=== PATIENT | female | born 1955 | race Caucasian/White ===

== ENCOUNTER 2017-08-03 17:05 | Observation (INO) ==
--- NOTE | 2017-08-04 07:23 | Pharmacy Consult Notes ---
[facility] Pharmacy VTE Monitoring - Patient Demographics Admission date: 09/03/17 Report Date: 08/04/17 Time: 07:22 Allergies/Adverse Reactions: No Known Allergies Allergy (Verified 08/03/17 21:18) Height: 1.55 m Weight: 69.853 kg - VTE Risk Labs: VTE Related Lab Results Hgb 12.3 g/dL (12.2-16.2) 08/03/17 18:38 Hct 41.0 % (37.0-47.0) 08/03/17 18:38 Plt Count 201 K/mm3 (142-424) D 08/03/17 18:38 BUN 10 mg/dL (7-18) 08/03/17 18:38 Creatinine 0.9 mg/dL (0.55-1.02) 08/03/17 18:38 Estimated Creat Clear 69 ML/MIN (50-200) 08/03/17 18:38 Clinical Trial Participant: No - Prophylaxis VTE Prophylaxis Ordered?: Yes Types of VTE Prophylaxis: TEDS Knee High, Pharmacological (LOVENOX) Location of Applied Device: Not Applicable Pharmacologic Type: Enoxaparin
--- NOTE | 2017-08-04 20:22 | Progress Note ---
Internal Medicine - PN: Subj *Date: 08/04/17 *Time: 20:00 Interval history: pt seen and doing better Exam Vital signs and Labs for Last 24 Hours: Temp Pulse Resp BP Pulse Ox 98.0 F 89 18 113/60 92 L 08/04/17 16:00 08/04/17 18:05 08/04/17 16:00 08/04/17 16:00 08/04/17 18:05 Short CBC 08/03/17 Range/Units 18:38 WBC 15.7 H (4.8 - 10.8) K/MM3 Hgb 12.3 (12.2 - 16.2) g/dL Hct 41.0 (37.0 - 47.0) % Plt Count 201 D (142 - 424) K/mm3 BMP 08/03/17 18:38 Sodium 133 L Potassium 3.9 Chloride 99 Carbon Dioxide 29 BUN 10 Creatinine 0.9 Glucose 180 H Calcium 8.8 Liver Function 08/03/17 Range/Units 18:38 Total Bilirubin 0.3 (0.2 - 1.0) mg/dL AST 46 H (15 - 37) U/L ALT 12 (12 - 78) U/L Alkaline Phosphatase 94 (46 - 116) U/L Albumin 2.6 L (3.4 - 5.0) gm/dL I & O for Last 24 hours: Intake & Output 08/02/17 08/03/17 08/04/17 08/05/17 11:59 11:59 11:59 11:59 Intake Total 370 / 370 60 / 60 Output Total 0 / 0 0 / 0 Balance 370 / 370 60 / 60 no acute distress - *Routine HEENT Exam Head: Present: normocephalic, atraumatic Eye: Present: EOMI, PERRL ENT: Present: mucous membranes dry - *Routine Neck Exam Present: full ROM - *Routine Respiratory Exam Present: decreased breath sounds - *Routine Cardiovascular Exam Present: RRR, murmur - *Routine Extremities Exam Present: full ROM - *Routine Skin Exam Present: intact - *Routine Neurological Exam Present: oriented X3, CN II-XII intact - Routine Psychiatric Exam Present: normal affect Assessment and Plan (1) CAP (community acquired pneumonia) Current visit: Yes Status: Acute Qualifiers: Laterality: unspecified laterality Qualified Code(s): J18.9 - Pneumonia, unspecified organism Category: Medical Code(s): J18.9 - Pneumonia, unspecified organism
--- NOTE | 2017-08-05 08:55 | Progress Note ---
Internal Medicine - PN: Subj *Date: 08/05/17 *Time: 08:53 Interval history: doing better Exam Vital signs and Labs for Last 24 Hours: Temp Pulse Resp BP Pulse Ox 98.7 F 87 18 153/84 97 08/05/17 08:00 08/05/17 08:00 08/05/17 08:00 08/05/17 08:00 08/05/17 08:00 I & O for Last 24 hours: Intake & Output 08/02/17 08/03/17 08/04/17 08/05/17 11:59 11:59 11:59 11:59 Intake Total 370 / 370 720 / 720 Output Total 0 / 0 0 / 0 Balance 370 / 370 720 / 720 no acute distress - *Routine HEENT Exam Head: Present: normocephalic Eye: Present: EOMI, PERRL ENT: Present: mucous membranes moist - *Routine Neck Exam Present: full ROM - *Routine Respiratory Exam Absent: respiratory distress - *Routine Cardiovascular Exam Present: murmur - *Routine Abdominal Exam Present: soft - *Routine Extremities Exam Present: full ROM. Absent: calf tenderness - *Routine Skin Exam Present: intact - *Routine Neurological Exam Present: oriented X3, CN II-XII intact Assessment and Plan (1) CAP (community acquired pneumonia) Current visit: Yes Status: Acute Qualifiers: Laterality: unspecified laterality Qualified Code(s): J18.9 - Pneumonia, unspecified organism Category: Medical Code(s): J18.9 - Pneumonia, unspecified organism
--- NOTE | 2017-08-05 09:11 | Discharge Summary ---
General - General Admission date: 09/03/17 Discharge date: 08/05/17 HPI HPI: this wf with fever with dec po intake andwas seen in the ed and noted to have resp sx with bilat cap - Objective Vital signs: Temp Pulse Resp BP Pulse Ox 98.7 F 87 18 153/84 97 08/05/17 08:00 08/05/17 08:00 08/05/17 08:00 08/05/17 08:00 08/05/17 08:00 no acute distress - *Routine HEENT Exam Eye: Present: EOMI, PERRL ENT: Present: mucous membranes moist - *Routine Neck Exam Present: full ROM - *Routine Respiratory Exam Present: rhonchi - *Routine Cardiovascular Exam Present: murmur - *Routine Abdominal Exam Present: soft - *Routine Extremities Exam Present: full ROM. Absent: calf tenderness - *Routine Skin Exam Present: intact. Absent: rash - *Routine Neurological Exam Present: alert, oriented X3, CN II-XII intact - Routine Psychiatric Exam Present: normal affect Hospital Course Hospital Course: pt with improvement with resp treatment and ivf martell iv abx and rinku diet and act - pt has no hypoxia on d/c DS: Diagnosis - Discharge Diagnosis (1) CAP (community acquired pneumonia) Status: Acute Meds Allergies Allergy/AdvReac Type Severity Reaction Status Date / Time No Known Allergies Allergy Verified 08/03/17 21:18 Disposition Disposition: Home, Self-Care
== END 2017-08-05 12:35 | disposition home or self-care (01) ==
LOC: INTOOBSV 18:10 → 2ND 18:10
PROVIDERS: ADMIT Internal Medicine Adolescent Medicine; ATTEND Emergency Medicine

== ENCOUNTER → 2017-09-26 15:09 | Outpatient (CLI) | payer MEDICAID, SELFPAY ==
[2017-09-26 17:51] LABS: Amphetamine/Metha Screen,Urine Negative ng/mL (<1000); Barbiturates Screen,Urine Negative ng/mL (<200); Benzodiazepines Screen,Urine Negative ng/mL (200); Cannabinoid Screen,Urine Negative ng/mL (<50); Cocaine Screen,Urine Negative ng/g (<300); Methadone Screen,Urine Negative ng/mL (<300); Opiate Screen,Urine Negative ng/mL (<300); Phencyclidine Screen,Urine Negative ng/mL (<25)
== END ==
PROVIDERS: Visit Provider Emergency Medicine
DX: Z79.899 Other long term (current) drug therapy (principal)
CPT/HCPCS: 80305

== ENCOUNTER 2017-10-17 19:41 | Emergency (ER) | payer MEDICAID, SELFPAY ==
[2017-10-17 19:42] VITALS: O2SAT 96
--- NOTE | 2017-10-17 19:47 | PC.NURSE ---
Triage nurse alerted me to patient's wound. Examined. Agree that pt is not appropriate for UTC. PMHx DM. Started yesterday as just a pimple , progressed rapidly. Discussed w/ pt and pt agreeable to transfer to ER. Report called to Annie. Bed 5 available.
[2017-10-17 20:01] VITALS: BP 150/77; PULSE 83; RESP 16; TEMP 36.6; O2SAT 97; BMI 25.8
--- NOTE | 2017-10-17 20:46 | HMH.EDGENADL ---
ED Disposition Clinical Impression: Abscess of finger Qualifiers: Laterality: left Qualified Code(s): L02.512 - Cutaneous abscess of left hand Disposition: Home, Self-Care Condition on Discharge: Good Instructions: DI for Incision and Drainage of a Skin Abscess, DI for Skin Abscess Additional Instructions: Soak finger in warm soapy water 3 times a day and apply Bactroban ointment and bandage. Elevate hand. Clindamycin as prescribed. Recheck by primary care physician on Friday. Return to the emergency department if increasing pain, swelling, redness, redstreaks or fever greater than 101 degrees. Prescriptions: Clindamycin HCl [Clindamycin 300mg Cap] 300 mg PO QID #40 cap Mupirocin [Bactroban 2% Ointment 22gm tube] 1 applicatio TP TID #1 tube Referrals: Denver Ashley MD [Primary Care Provider] - - Critical Care Critical Care Time: No Attestation: On 10/17/17, the high probability of a clinically significant, sudden or life threatening deterioration of the following system(s) required my full and direct attention, intervention and personal management. The time I documented below is in addition to time spent performing reported procedures but includes the following listed in this critical care notation. Medical Decision Making - Shamar Inquiry Pt receiving controlled substance: No Vital Signs: 10/17/17 20:01 Temperature 97.8 F Temperature Source Oral Pulse Rate [Right Radial] 83 Respiratory Rate 16 Blood Pressure [Right Arm] 150/77 Blood Pressure Mean [Right Arm] 101 Blood Pressure Source [Right Arm] Automatic Cuff Blood Pressure Position [Right Arm] Sitting 02 Sat by Pulse Oximetry 97 Oxygen Delivery Method Nasal Cannula Oxygen Flow Rate (LPM) 3 Orders (Tests/Meds): ED MEDICATIONS Generic Name Dose Route Start Last Admin Trade Name Freq PRN Reason Stop Dose Admin Nitroglycerin 0.4 mg 10/17/17 21:24 Nitrostat 0.4mg Sl Tablet SL 10/18/17 21:24 Q5MINP PRN Chest Pain Discontinued Medications Generic Name Dose Route Start Last Admin Trade Name Freq PRN Reason Stop Dose Admin Bupivacaine HCl 50 mg 10/17/17 20:53 Bupivacaine 0.5% 30ml Vial SQ 10/17/17 20:54 ONCE ONE Clindamycin HCl 300 mg 10/17/17 21:06 Cleocin 150mg Capsule PO 10/17/17 21:07 ONCE ONE Protocol ORDERS Category Date Time Status Wound Culture and Gram Stain Stat Micro 10/17/17 20:54 Ordered General Adult HPI - General Chief complaint: Skin/Abscess/Foreign Body Stated complaint: poss infected sore on left pointer finger Time Seen by Provider: 10/17/17 20:46 Mode of Arrival: Ambulatory Limitations: No Limitations Description of Symptoms (Recalled from ER Triage Doc. by RN): Open area on left pointer finger that came up yesterday. - History of Present Illness HPI narrative: The patient complains of an infected area on her left index finger that began yesterday. She squeezed it today and it popped open and drained but now is getting more swollen and painful. No fever, no injury. - Related Data Home Medications Medication Instructions Recorded Confirmed furosemide 40 mg tablet 40 mg PO ONCE 08/26/17 insulin glargine (U-100) 100 40 unit SUB-Q QHS ml 08/26/17 unit/mL (3 mL) subcutaneous pen lancets 28 gauge See Dose Instructions .ROUTE 08/26/17 .MEDSUPPLY #25 each lisinopril 10 mg tablet 10 mg PO QDAY 08/26/17 metformin 850 mg tablet 850 mg PO BID 08/26/17 metoprolol succinate ER 25 mg 25 mg PO BID 08/26/17 tablet,extended release 24 hr montelukast 10 mg tablet 10 mg PO QHS 08/26/17 nitroglycerin 0.4 mg sublingual 0.4 mg SUBLINGUAL Q5M PRN 08/26/17 tablet potassium chloride ER 20 mEq 20 meq PO QDAY 08/26/17 tablet,extended release albuterol sulfate 2.5 mg/3 mL 1.25 mg INHALATION Q4-6H PRN 09/26/17 (0.083 %) solution for nebulization Previous Rx's Medication Instructions Recorded ipratropium
[2017-10-17 22:00] VITALS: BP 146/82; PULSE 77; RESP 18; TEMP 36.6; O2SAT 97
[2017-10-17 22:12] VITALS: BP 146/82; PULSE 77; RESP 20; TEMP 36.6; O2SAT 97
== END 2017-10-17 22:01 | disposition home or self-care (01) ==
LOC: UTC 19:44 → ER 19:49
PROVIDERS: Emergency Provider Emergency Medicine; Family Provider Nurse Practitioner Family; PCP Emergency Medicine
DX: L02.512 Cutaneous abscess of left hand (principal); J45.909 Unspecified asthma, uncomplicated; J44.9 Chronic obstructive pulmonary disease, unspecified; Z99.81 Dependence on supplemental oxygen; F17.210 Nicotine dependence, cigarettes, uncomplicated; E78.5 Hyperlipidemia, unspecified; I10 Essential (primary) hypertension; E11.9 Type 2 diabetes mellitus without complications; Z79.84 Long term (current) use of oral hypoglycemic drugs; K21.9 Gastro-esophageal reflux disease without esophagitis
CPT/HCPCS: 26010; 87070; 87077; 87186; 87205; 99211; 99282

== ENCOUNTER 2017-10-27 09:55 | Outpatient (CLI) | payer MEDICAID, SELFPAY ==
[2017-10-27] VITALS (9 sets, daily range): BP systolic 93–117; BP diastolic 43–60; PULSE 81–104; RESP 18–20; TEMP 36.7; O2SAT 94–96; BMI 25.8
[2017-10-27 11:10] LABS: Basophils % 0.3 % (0.1-2.0); Eosinophils # 0.2 K/mm3 (0.0-0.4); Eosinophils % 1.9 % (0.1-12.0); Hematocrit 42.8 % (37.0-47.0); Hemoglobin 13.5 g/dL (12.2-16.2); Lymphocytes # 2.4 K/mm3 (0.7-4.5); Lymphocytes % 29.2 K/mm3 (10-50); Mean Corpuscular HGB Conc 31.6 g/dL (31.8-35.4); Mean Corpuscular Hemoglobin 31.3 pg (27.0-31.2); Mean Corpuscular Volume 99.1 fl (81-99); Mean Platelet Volume 6.8 fl (7.4-10.4); Monocytes # 0.4 K/mm3 (0.1-1.0); Monocytes % 4.4 % (1.7-9.3); Neutrophils # 5.2 K/mm3 (1.8-7.8); Neutrophils % 64.2 % (37.0-80.0); Platelet Count 514 K/mm3 (142-424); Red Blood Count 4.32 M/mm3 (4.20-5.40); Red Cell Distribution Width 15.7 % (11.5-17.5); White Blood Count 8.1 K/mm3 (4.8-10.8)
[2017-10-27 11:16] LABS: Anion Gap 12.1 mEq/L (5-15); Blood Urea Nitrogen 7 mg/dL (7-18); Carbon Dioxide 26 mmol/L (21.0-32.0); Chloride 95 mmol/L (98-107); Creatinine Clearance Estimated 68 mL/min (0-300); Creatinine,Serum 0.67 mg/dL (0.55-1.02); Estimated Glomerular Filt Rate 89 ml/min (>60); GFR (African American) 108 ML/MIN (>60); Glucose 110 mg/dL (74-106); Potassium 5.1 mmoL/L (3.5-5.1); Sodium 128 mmol/L (136-145)
== END 2017-10-27 13:20 | disposition home or self-care (01) ==
LOC: INF 12:39
PROVIDERS: Family Provider Nurse Practitioner Family; PCP Emergency Medicine; Visit Provider Emergency Medicine
DX: L02.512 Cutaneous abscess of left hand (principal)
CPT/HCPCS: 80048; 85025; 96365; 96366; J3370

== ENCOUNTER → 2017-10-28 08:20 | Outpatient (CLI) | payer MEDICAID, SELFPAY ==
[2017-10-28 09:16] VITALS: BP 123/67; PULSE 82; RESP 18; TEMP 36.5; O2SAT 94
[2017-10-28 09:31] VITALS: BP 125/67; PULSE 82; RESP 18; O2SAT 95
[2017-10-28 09:46] VITALS: BP 125/68; PULSE 83; RESP 18; O2SAT 95
--- NOTE | 2017-10-28 09:50 | P.CONPHA_ITS ---
- Pharmacy Consult Date: 10/28/17 Time: 09:47 Referring provider: DR. GALLAGHER Reason for Consult:: VANCOMYCIN DOSING Allergies and ADEs:: Allergies Allergy/AdvReac Type Severity Reaction Status Date / Time No Known Allergies Allergy Verified 10/27/17 08:31 Home Medications:: Home Medications Medication Instructions Recorded Confirmed Type furosemide 40 mg tablet 40 mg PO DAILY 08/26/17 10/28/17 History insulin glargine (U-100) 100 40 unit SUB-Q QHS ml 08/26/17 10/28/17 History unit/mL (3 mL) subcutaneous pen lisinopril 10 mg tablet 10 mg PO QDAY 08/26/17 10/28/17 History metformin 850 mg tablet 850 mg PO BID 08/26/17 10/28/17 History metoprolol succinate ER 25 mg 25 mg PO BID 08/26/17 10/28/17 History tablet,extended release 24 hr montelukast 10 mg tablet 10 mg PO QHS 08/26/17 10/28/17 History nitroglycerin 0.4 mg sublingual 0.4 mg SUBLINGUAL Q5M PRN 08/26/17 10/28/17 History tablet albuterol sulfate 2.5 mg/3 mL 1.25 mg INHALATION Q4-6H PRN 09/26/17 10/28/17 History (0.083 %) solution for nebulization Albuterol Sulfate [Albuterol HFA 2 puff INHALATION Q6H 10/27/17 10/28/17 History Inhaler] Atorvastatin Calcium [Lipitor 20mg 20 mg PO QDAY 10/27/17 10/28/17 History Tablet] Budesonide/Formoterol Fumarate 2 inh INHALATION BID 10/27/17 10/28/17 History [Symbicort 160-4.5 Mcg Inhaler] Clindamycin HCl [Clindamycin 300mg 300 mg PO QID 10/27/17 10/28/17 History Cap] Clopidogrel Bisulfate [Plavix 75mg 75 mg PO DAILY 10/27/17 10/28/17 History Tab] Estrogens, Conjugated [Premarin 0.625 mg PO QDAY 10/27/17 10/28/17 History 0.625mg tablet] Gabapentin [Neurontin 800mg Tab] 800 mg PO QID 10/27/17 10/28/17 History Ipratropium/Albuterol Sulfate 1 puff INHALATION QID 10/27/17 10/28/17 History [Combivent Respimat Inh] Isosorbide Mononitrate [Imdur 30mg 30 mg PO QAM 10/27/17 10/28/17 History ER tablet] Mupirocin [Bactroban 2% Ointment 1 applicatio TP TID 10/27/17 10/28/17 History 22gm tube] Omeprazole [Omeprazole 20mg 20 mg PO DAILY 10/27/17 10/28/17 History Capsule] Potassium Chloride [K-Tab ER 20 20 meq PO BID 10/27/17 10/28/17 History mEq] Sitagliptin Phosphate [Januvia] 100 mg PO QDAY 10/27/17 10/28/17 History Sulfamethoxazole/Trimethoprim 1 tab PO BID 10/27/17 10/28/17 History [Sulfamethoxazole-Tmp Ds Tablet] clonazePAM [Klonopin] 0.5 mg PO BID 10/27/17 10/28/17 History Height: 1.98 m Weight: 72.7 kg Laboratory Results:: CR=0.68 Medical History: Reports:: Asthma, Chronic Obstructive Pulmonary Disease (COPD) , Diabetes Mellitus Type 2, Gastroesophageal Reflux Disease(GERD), Home Oxygen, Hyperlipidemia, Hypertension, Kidney Stones, MRSA Assessment and Plan - Assessment and plan all Dx Assessment and Plan for all problems:: BASED ON PATIENT FACTORS, RECOMMEND VANCOMYCIN 1500 MG IV ONCE, THEN VANCOMYCIN 1000 MG IV Q12H FOR 4 MORE DAYS. VANCOMYCIN TROUGH LEVEL ON 10/30/17. PHARMACY WILL FOLLOW AND ADJUST APPROPRIATE.
[2017-10-28 10:01] VITALS: BP 121/62; PULSE 81; RESP 18; O2SAT 94
[2017-10-28 10:16] VITALS: BP 123/60; PULSE 80; RESP 18; O2SAT 95
[2017-10-28 10:36] VITALS: BP 119/64; PULSE 79; RESP 18; O2SAT 95
--- NOTE | 2017-10-29 08:14 | PC.NURSE ---
PT IN FOR IV VANCOMYCIN INFUSION ON 10/28/17 PM . VITAL SIGNS B.P. 136/63 P 100 R 22 O2 SAT ON ROOM AIR 98. PT DID LATER PUT ON HER OWN 02 PER NASAL CANNULA . DRESSING TO DIGIT OF L HAND INTACT. SALINE LOCK PATENT WITH NO SIGNS OF INFECTION AT THE SITE. IV ANTIBIOTIC INFUSED WITHOUT DIFFICULTY.PATIENT TOLERATED INFUSION WELL WITHOUT ANY SIGNS OF DISTRESS OR DISCOMFORT.PT LEFT WITH AFTER INFUSION.
== END ==
PROVIDERS: Family Provider Nurse Practitioner Family; PCP Emergency Medicine; Visit Provider Emergency Medicine
DX: L02.512 Cutaneous abscess of left hand (principal)
CPT/HCPCS: 96365; J3370

== ENCOUNTER → 2017-10-28 13:03 | Outpatient (POV) | payer MEDICAID, SELFPAY ==
[2017-10-28 20:47] VITALS: BMI 25.9
== END ==
PROVIDERS: Family Provider Nurse Practitioner Family; PCP Emergency Medicine; Visit Provider Internal Medicine
DX: Z00.00 Encounter for general adult medical examination without abnormal findings (principal)

== ENCOUNTER → 2017-10-29 08:10 | Outpatient (CLI) | payer MEDICAID, SELFPAY ==
[2017-10-29 08:40] VITALS: BP 103/71; PULSE 105; RESP 22
[2017-10-29 09:10] VITALS: BP 133/80; PULSE 100; RESP 20
[2017-10-29 09:40] VITALS: BP 111/66; PULSE 91; RESP 20
[2017-10-29 10:00] VITALS: BP 110/68; PULSE 83; RESP 18
[2017-10-29 20:10] VITALS: BP 109/64; PULSE 111; RESP 18; TEMP 36.3; O2SAT 96
[2017-10-29 21:15] VITALS: BP 92/58; PULSE 108; RESP 18; TEMP 36.6; O2SAT 98
== END ==
PROVIDERS: Family Provider Nurse Practitioner Family; PCP Emergency Medicine; Visit Provider Emergency Medicine
DX: L02.512 Cutaneous abscess of left hand (principal)
CPT/HCPCS: 96365; J3370

== ENCOUNTER → 2017-10-30 08:27 | Outpatient (CLI) | payer MEDICAID, SELFPAY ==
[2017-10-30] VITALS (9 sets, daily range): BP systolic 101–118; BP diastolic 60–71; PULSE 81–114; RESP 18–20; TEMP 36.6–36.9; O2SAT 20–98; BMI 25.8
[2017-10-30 09:00] LABS: Vancomycin,Trough 10.1 mcg/ml (10.0-20.0)
--- NOTE | 2017-10-30 11:00 | P.CONPHA_ITS ---
- Pharmacy Consult Date: 10/30/17 Time: 10:58 Referring provider: DR. GALLAGHER Reason for Consult:: VANCOMYCIN TROUGH LEVEL Allergies and ADEs:: Allergies Allergy/AdvReac Type Severity Reaction Status Date / Time No Known Allergies Allergy Verified 10/29/17 09:03 Home Medications:: Home Medications Medication Instructions Recorded Confirmed Type furosemide 40 mg tablet 40 mg PO DAILY 08/26/17 10/30/17 History insulin glargine (U-100) 100 40 unit SUB-Q DAILY ml 08/26/17 10/30/17 History unit/mL (3 mL) subcutaneous pen lisinopril 10 mg tablet 10 mg PO QDAY 08/26/17 10/30/17 History metformin 850 mg tablet 850 mg PO BID 08/26/17 10/30/17 History metoprolol succinate ER 25 mg 25 mg PO BID 08/26/17 10/30/17 History tablet,extended release 24 hr montelukast 10 mg tablet 10 mg PO QHS 08/26/17 10/30/17 History nitroglycerin 0.4 mg sublingual 0.4 mg SUBLINGUAL Q5M PRN 08/26/17 10/30/17 History tablet albuterol sulfate 2.5 mg/3 mL 1.25 mg INHALATION Q4-6H PRN 09/26/17 10/30/17 History (0.083 %) solution for nebulization Albuterol Sulfate [Albuterol HFA 2 puff INHALATION Q6H 10/27/17 10/30/17 History Inhaler] Atorvastatin Calcium [Lipitor 20mg 20 mg PO QDAY 10/27/17 10/30/17 History Tablet] Budesonide/Formoterol Fumarate 2 inh INHALATION BID 10/27/17 10/30/17 History [Symbicort 160-4.5 Mcg Inhaler] Clindamycin HCl [Clindamycin 300mg 300 mg PO QID 10/27/17 10/30/17 History Cap] Clopidogrel Bisulfate [Plavix 75mg 75 mg PO DAILY 10/27/17 10/30/17 History Tab] Estrogens, Conjugated [Premarin 0.625 mg PO QDAY 10/27/17 10/30/17 History 0.625mg tablet] Gabapentin [Neurontin 800mg Tab] 800 mg PO QID 10/27/17 10/30/17 History Ipratropium/Albuterol Sulfate 1 puff INHALATION QID 10/27/17 10/30/17 History [Combivent Respimat Inh] Isosorbide Mononitrate [Imdur 30mg 30 mg PO QAM 10/27/17 10/30/17 History ER tablet] Mupirocin [Bactroban 2% Ointment 1 applicatio TP TID 10/27/17 10/30/17 History 22gm tube] Omeprazole [Omeprazole 20mg 20 mg PO DAILY 10/27/17 10/30/17 History Capsule] Potassium Chloride [K-Tab ER 20 20 meq PO BID 10/27/17 10/30/17 History mEq] Sitagliptin Phosphate [Januvia] 100 mg PO QDAY 10/27/17 10/30/17 History Sulfamethoxazole/Trimethoprim 1 tab PO BID 10/27/17 10/30/17 History [Sulfamethoxazole-Tmp Ds Tablet] clonazePAM [Klonopin] 0.5 mg PO BID 10/27/17 10/30/17 History Height: 1.68 m Weight: 72.575 kg Laboratory Results:: Laboratory Results - last 24 hr 10/30/17 08:40: Vancomycin Trough 10.1 Medical History: Reports:: Asthma, Chronic Obstructive Pulmonary Disease (COPD) , Diabetes Mellitus Type 2, Gastroesophageal Reflux Disease(GERD), Home Oxygen, Hyperlipidemia, Hypertension, Kidney Stones, MRSA Assessment and Plan - Assessment and plan all Dx Assessment and Plan for all problems:: BASED ON VANCOMYCIN TROUGH LEVEL AND PATIENT FACTORS, RECOMMEND CONTINUING VANCOMYCIN 1 GM IV Q12H. PHARMACY WILL CONTINUE TO MONITOR.
== END ==
PROVIDERS: Family Provider Nurse Practitioner Family; PCP Emergency Medicine; Visit Provider Emergency Medicine
DX: L02.512 Cutaneous abscess of left hand (principal)
CPT/HCPCS: 80202; 96365; J3370

== ENCOUNTER → 2017-10-31 08:20 | Outpatient (CLI) | payer MEDICAID, SELFPAY ==
[2017-10-31 09:10] VITALS: BP 111/62; PULSE 93; RESP 24
[2017-10-31 09:40] VITALS: BP 97/55; PULSE 92; RESP 20
[2017-10-31 10:00] VITALS: BP 97/55; PULSE 92; RESP 20
--- NOTE | 2017-10-31 20:46 | PC.NURSE ---
PT CAME IN SOA AND WHEEZING .DID HAVE HER O2 ON PER NC AT 3LPM. STATES GETS THIS WAY ALL THE TIME. THIS DYSPNEA DID RESOLVE WITH REST.PT DOES REMAIN ON NC AT 3LPM. PT STATES THAT SECOND DIGIT OF L HAND IS MUCH BETTER.DID TAKE DRESSING OFF.THIS DIGIT IS STILL REDDENED WITH VARIOUS AREAS OF REDNESS. THIS DIGIT REDRESSED.PT REPEATED THAT THIS DIGIT IS MUCH BETTER THAN BEFORE. PT DENIES ANY DISCOMFORT AT THIS TIME VITAL SIGNS T 98.1 P 109 R 24 BP148/77 SAT 96 %
--- NOTE | 2017-10-31 21:40 | PC.NURSE ---
tolerated infusion without difficulty. bp130/84 p106 r 24 o2 sat 98 on nc 3lpm
== END ==
PROVIDERS: Family Provider Nurse Practitioner Family; PCP Emergency Medicine; Visit Provider Emergency Medicine
DX: L02.512 Cutaneous abscess of left hand (principal)
CPT/HCPCS: 96365; G0463; J3370

== ENCOUNTER → 2017-12-22 12:47 | Outpatient (CLI) | payer MEDICAID, SELFPAY ==
[2017-12-22 14:01] VITALS: PULSE 100; PULSE 105
[2017-12-22 14:30] VITALS: BP 142/82; PULSE 93; RESP 18; O2SAT 88
--- NOTE | 2017-12-22 14:59 | CT_ITS ---
CT chest wo con HISTORY: ITS.REASON: SOB,PULMONARY FIBROSIS, RESPIRATORY FAILURE, INTERSTITIAL RAJNI ORDERING PHYSICIAN: Fior August PATIENT AGE: 62 years Technique: Axial images obtained. High-resolution images also performed. Sagittal and coronal reformatted images are also generated and reviewed. All CT scans at the facility use one or more dose reduction, viz: automated exposure control; ma/kV adjustment per patient size (including targeted exams where dose is matched to indication; i.e. head); or iterative reconstruction technique. CONTRAST: None COMPARISON: 12/26/2016 FINDINGS: Scattered small nodes are present in the mediastinum with a emerald area in the pretracheal region extending cephalad to caudad for length of 3.9 cm and 1.2 cm AP slightly less bulky in AP dimension compared to the previous exam. No new areas of adenopathy. No hilar mass or hilar adenopathy. Coronary artery calcifications and/or stent noted. Normal heart size. There is some minimal pericardial thickening anteriorly. Small hiatal hernia. Centrilobular emphysema with pulmonary fibrosis once again noted with perihilar bronchial thickening. Mild bronchiectasis in the lung bases not significantly changed. Overall, the interlobular septal thickening has slightly improved in the lung bases. No new areas of consolidation. No pleural effusion. No new suspicious nodules. There has been interval development of wedge compression changes involving the T12 vertebral body with loss of height anteriorly of 30% and mild retropulsion of the posterior superior aspect of the T12 vertebral body x 4 mm. This was present on previous lateral chest radiograph of 05/29/2017. IMPRESSION: 1. Centrilobular emphysema with pulmonary fibrosis. There appears to be some slight improvement in the interlobular septal thickening. Persistent bronchiectasis. 2. Wedge compression changes of T12 with 4 mm retropulsion of the posterior superior aspect of the vertebral body 3. No change mild mediastinal adenopathy
[2017-12-22 15:00] VITALS: BP 120/71; PULSE 121; RESP 40; O2SAT 82
== END ==
PROVIDERS: Family Provider Nurse Practitioner Family; PCP Emergency Medicine; Visit Provider Nurse Practitioner Family
DX: R06.02 Shortness of breath (principal); J44.9 Chronic obstructive pulmonary disease, unspecified; J84.10 Pulmonary fibrosis, unspecified; J96.90 Respiratory failure, unspecified, unspecified whether with hypoxia or hypercapnia; J84.9 Interstitial pulmonary disease, unspecified
CPT/HCPCS: 71250; 94060; 94618; 94640; 94726; 94729

== ENCOUNTER → 2018-01-02 09:42 | Outpatient (CLI) | payer MEDICAID, SELFPAY ==
[2018-01-02 14:02] LABS: Amphetamine/Metha Screen,Urine Negative ng/mL (<1000); Barbiturates Screen,Urine Negative ng/mL (<200); Benzodiazepines Screen,Urine Negative ng/mL (200); Cannabinoid Screen,Urine Negative ng/mL (<50); Cocaine Screen,Urine Negative ng/g (<300); Methadone Screen,Urine Negative ng/mL (<300); Opiate Screen,Urine Negative ng/mL (<300); Phencyclidine Screen,Urine Negative ng/mL (<25)
== END ==
PROVIDERS: Visit Provider Emergency Medicine
DX: Z79.899 Other long term (current) drug therapy (principal)
CPT/HCPCS: 80305

== ENCOUNTER → 2018-02-24 13:21 | Outpatient (POV) | payer MEDICAID, SELFPAY | PROVIDERS: Family Provider Nurse Practitioner Family; PCP Emergency Medicine; Visit Provider Internal Medicine | DX: Z00.00 Encounter for general adult medical examination without abnormal findings (principal) ==

== ENCOUNTER 2018-03-16 16:13 | Observation (INO) ==
--- NOTE | 2018-03-16 16:35 | Emergency Department Note ---
ED Disposition Clinical Impression: Pneumonia Qualifiers: Pneumonia type: due to unspecified organism Laterality: unspecified laterality Lung location: unspecified part of lung Qualified Code(s): J18.9 - Pneumonia, unspecified organism Disposition: Admitted As Inpatient Condition on Discharge: Good Time of Disposition: 16:45 - Critical Care Critical Care Time: No Attestation: On 03/16/18, the high probability of a clinically significant, sudden or life threatening deterioration of the following system(s) required my full and direct attention, intervention and personal management. The time I documented below is in addition to time spent performing reported procedures but includes the following listed in this critical care notation. Medical Decision Making - Medical Records Medical records reviewed: Yes: I reviewed the patient's medical records. - Shamar Inquiry Pt receiving controlled substance: No Vital Signs: 03/16/18 16:20 03/16/18 16:49 03/16/18 17:36 Temperature 99.0 F 98.6 F Temperature Source Oral Oral Pulse Rate 77 Pulse Rate [Right Brachial] 81 80 Respiratory Rate 20 20 20 Blood Pressure 107/59 Blood Pressure [Right Arm] 100/63 111/49 Blood Pressure Mean [Right Arm] 75 69 Blood Pressure Source Automatic Cuff Blood Pressure Source [Right Arm] Automatic Cuff Automatic Cuff Blood Pressure Position Sitting Blood Pressure Position [Right Arm] Sitting Sitting 02 Sat by Pulse Oximetry 98 100 Oxygen Delivery Method Nasal Cannula Nasal Cannula Nasal Cannula Oxygen Flow Rate (LPM) 3 2 3 - Lab Data Lab results reviewed: Yes: I reviewed the patient's lab results. Lab Results 03/16/18 16:45: WBC 7.9, RBC 3.45 L, Hgb 10.7 L, Hct 35.0 L, MCV 101.5 H, MCH 31.0, MCHC 30.5 L, RDW 15.4, Plt Count 483 H, MPV 6.7 L, Neut % (Auto) 73.9, Lymph % (Auto) 20.7, [place] % (Auto) 3.9, Eos % (Auto) 1.2, Baso % (Auto) 0.3, Neut # (Auto) 5.8, Lymph # (Auto) 1.6, [place] # (Auto) 0.3, Eos # (Auto) 0.1, Baso # (Auto) 0.0 03/16/18 16:45: Sodium 132 L, Potassium 5.2 H, Chloride 97 L, Carbon Dioxide 31 , Anion Gap 9.2, BUN 7, Creatinine 0.71, Estimated Creat Clear 63, Estimated GFR 83, Est GFR ( Amer) 101, Glucose 101, Calcium 8.7, Total Bilirubin 0.3, AST 15, ALT 16, Alkaline Phosphatase 164 H, Total Protein 7.6, Albumin 2.0 L, Globulin 5.6 H, Albumin/Globulin Ratio 0.4 L 03/16/18 16:45: Lactate 1.4 03/16/18 16:45: Total Creatine Kinase 42, CK-MB (CK-2) 0.6, CK-MB (CK-2) Rel Index 1.4, Troponin I < 0.02 03/16/18 16:50: Specimen Source Rt radial, O2 % 32, ABG pH 7.39, ABG pCO2 45.7 H , ABG pO2 104.0 H, ABG HCO3 27.0 H, ABG Total CO2 28.4 H, ABG O2 Saturation 97, ABG Base Excess 2.1, Rigo Test Acceptable Result diagrams: 03/16/18 16:45 03/16/18 16:45 Orders (Tests/Meds): ED MEDICATIONS Generic Name Dose Route Start Last Admin Trade Name Freq PRN Reason Stop Dose Admin Albuterol/Ipratropium 3 ml 03/16/18 17:46 Duoneb 3ml Neb IH 04/15/18 17:45 Q4H NI Clonazepam 0.5 mg 03/16/18 21:00 Klonopin 0.5mg Tablet PO 04/15/18 20:59 BID [facility] Clopidogrel Bisulfate 75 mg 03/17/18 09:00 Plavix 75mg Tablet PO 04/16/18 08:59 DAILY NI Furosemide 40 mg 03/17/18 09:00 Lasix 40mg Tablet PO 04/16/18 08:59 DAILY NI Azithromycin 500 mg/ Sodium 250 mls @ 250 mls/hr 03/17/18 16:45 Chloride IV 03/30/18 16:44 Q24H NI Protocol Ceftriaxone Sodium 1 gm/ 50 mls @ 100 mls/hr 03/17/18 16:45 Sodium Chloride IV 03/30/18 16:44 Q24H NI Protocol Sodium Chloride 1,000 mls @ 75 mls/hr 03/16/18 17:46 03/16/18 18:16 Sod Chlor 0.9% 1000ml Bag IV 04/15/18 17:45 75 mls/hr .[id number] NI Administration Insulin Glargine 40 unit 03/17/18 09:00 Insulin Glargine 100 Units/Ml 3ml Flexpen SQ 04/16/18 08:59 DAILY [facility] Isosorbide Mononitrate 30 mg 03/16/18 17:46 Imdur 30mg Er Tablet PO 04/15/18 17:45 QAM [facility] Metoprolol Succinate 25 mg 03/16/18 21:00 Toprol Xl 25mg Tablet PO 04/15/18 20:59 BID [facility] Montelukast Sodium 10 mg 03/16/18 17:46 Singulair 10mg Tablet PO 04/15/18 17:45 QHS [facility] Nitroglycerin 0.4 mg 03/16/18 17:46 Nitrostat 0.4mg Sl Tablet SL 04/15/18 17:45 Q5M PRN Chest Pain Non-Formulary Medication 2 inh 03/16/18 21:00 Budesonide/Formoterol Fumarate [Symbicort 160-4.5 Mcg Inhaler] INHALATION 20:59 BID NI Non-Formulary Medication 0.625 mg 03/16/18 17:46 Estrogens, Conjugated [Premarin 0.625mg Tablet] PO 04/15/18 17:45 QDAY NI Non-Formulary Medication 800 mg 03/16/18 17:46 03/16/18 18:16 Gabapentin [Neurontin 800mg Tab] PO 04/15/18 17:45 800 mg QID [facility] Administration Non-Formulary Medication 20 mg 03/17/18 09:00 Omeprazole [Omeprazole 20mg Capsule] PO 04/16/18 08:59 DAILY NI Non-Formulary Medication 1 tab 03/16/18 21:00 Pioglitazone Hcl/Metformin Hcl [Pioglitazone-Metformin 15-850] PO 04/15/18 20:59 BID NI Non-Formulary Medication 20 meq 03/16/18 21:00 Potassium Chloride [K-Tab Er 20 Meq] PO 04/15/18 20:59 BID NI Non-Formulary Medication 100 mg 03/16/18 17:46 Sitagliptin Phosphate [Januvia] PO 04/15/18 17:45 QDAY NI Discontinued Medications Generic Name Dose Route Start Last Admin Trade Name Freq PRN Reason Stop Dose Admin Azithromycin 500 mg/ Sodium 250 mls @ 250 mls/hr 03/16/18 16:45 03/16/18 17: 54 Chloride IV 03/30/18 16:44 250 mls/hr Q24H NI Administration Protocol Ceftriaxone Sodium 1 gm/ 50 mls @ 100 mls/hr 03/16/18 16:45 03/16/18 17:04 Sodium Chloride IV 03/30/18 16:44 100 mls/hr Q24H NI Administration Protocol ORDERS Category Date Time Status Troponin I Q3H Lab 03/16/18 18:46 Ordered Troponin I Q3H Lab 03/16/18 21:45 Ordered Blood Culture Stat Micro 03/16/18 16:45 Received EKG Request [ECG Request by /Lennox] Stat Y 03/16/18 16:44 Stop Req - Radiology Data #1 Image(s): Chest Image Reviewed: Yes I reviewed the patient's radiology results, Yes I reviewed the patient's radiology image, Yes I discussed the image results w/the radiologist Preliminary Findings: [facility] [address] [facility] [address] [place] [address] XRay Report Signed Patient: Bridget Reza MR#: [id number] : 1955 Acct:[id number] Age/Sex: 63 / F ADM Date: 03/16/18 Loc: - Attending Dr: Denver Ashley MD Ordering Physician: Breezy Sethi MD Date of Service: 03/16/18 Procedure(s): XR chest portable Accession Number(s): [id number] cc: Rigo Lee MD; Denver Ashley MD~ XR chest portable HISTORY: Pneumonia, pulmonary fibrosis ITS.REASON: weakness ORDERING PHYSICIAN: Breezy Sethi MD PATIENT AGE: 63 years COMPARISON: 03/12/2018 FINDINGS: Pulmonary fibrotic changes are once again noted with chronic parenchymal opacification in the lung bases. Patchy density once again noted in both upper lobes bilateral areas of pneumonia which may be slightly improved. Left humeral prosthesis is present. No evidence of CHF. IMPRESSION: Chronic pulmonary fibrotic changes with superimposed infiltrate in both upper lobes slightly Dictated By: Rigo Lee MD Signed By: <Electronically signed by Rigo Lee MD in OV> 03/16/181658 DD/ 56 - Physician Consults Physician Consulted: Dr Ashley Time: 16:45 Reason -: Admission (1644), Pt condition Comment/Response: Dr Ashley called the ER requesting patient to be admitted. General Adult HPI - General Chief complaint: Weakness Stated complaint: COPD,Pneumonia R Lung Time Seen by Provider: 03/16/18 16:15 Mode of Arrival: Wheelchair Source of Information: Patient Limitations: No Limitations Description of Symptoms (Recalled from ER Triage Doc. by RN): Pt reports "just not feeling well" reports hasn't been feeling well for approx 4 days. Reports was diagnosed with pneumonia 4 days ago by PCP and started on Bactrim. Pt reports seen by PCP again today and sent to ER for further evaluation. - History of Present Illness HPI narrative: Patient was recently diagnosed with pneumonia, and has been currently been on antibiotics (Bactrim), day #4. She went to Dr. Ashley's office, where she was found to be weak, lacking adequate clinical improvement, so she was sent to the emergency room for workup and admission. Patient has a history of pulmonary fibrosis,, and she is currently oxygen dependent, 2 L per nasal cannula. complaint: dyspnea, weakness, productive cough Onset (ago): day(s) (4) Location: chest Radiation: non-radiation Consistency: constant Relieving factors: rest Exacerbating factors: movement Associated symptoms: diaphoresis, loss of appetite - Related Data Home Medications Medication Instructions Recorded Confirmed furosemide 40 mg tablet 40 mg PO DAILY 08/26/17 03/16/18 insulin glargine (U-100) 100 40 unit SUB-Q DAILY ml 08/26/17 03/16/18 unit/mL (3 mL) subcutaneous pen metoprolol succinate ER 25 mg 25 mg PO BID 08/26/17 03/16/18 tablet,extended release 24 hr nitroglycerin 0.4 mg sublingual 0.4 mg SUBLINGUAL Q5M PRN 08/26/17 03/16/18 tablet albuterol sulfate 2.5 mg/3 mL 1.25 mg INHALATION Q4-6H PRN 09/26/17 03/16/18 (0.083 %) solution for nebulization Budesonide/Formoterol Fumarate 2 inh INHALATION BID 10/27/17 03/16/18 [Symbicort 160-4.5 Mcg Inhaler] Omeprazole [Omeprazole 20mg 20 mg PO DAILY 10/27/17 03/16/18 Capsule] Potassium Chloride [K-Tab ER 20 20 meq PO BID 10/27/17 03/16/18 mEq] Sulfamethoxazole/Trimethoprim 1 tab PO BID 10/27/17 03/16/18 [Sulfamethoxazole-Tmp Ds Tablet] Pioglitazone HCl/Metformin HCl 1 tab PO BID 03/12/18 03/16/18 [Pioglitazone-Metformin 15-850] Clopidogrel Bisulfate [Plavix 75mg 75 mg PO DAILY 03/16/18 03/16/18 Tab] Previous Rx's Medication Instructions Recorded albuterol sulfate HFA 90 2 puff INHALATION Q6H #18 g 12/18/17 mcg/actuation aerosol inhaler clonazepam 0.5 mg tablet 0.5 mg PO BID 30 Days #60 tab 01/02/18 gabapentin 800 mg tablet 800 mg PO QID 30 Days #120 tab 01/02/18 isosorbide mononitrate ER 30 mg 30 mg PO QAM #90 tab 01/06/18 tablet,extended release 24 hr conjugated estrogens 0.625 mg 0.625 mg PO QDAY #90 tab 01/07/18 tablet montelukast 10 mg tablet 10 mg PO QHS #90 tab 01/07/18 ipratropium 20 mcg-albuterol 100 1 puff INHALATION QID #4 g 01/12/18 mcg/actuation mist for inhalation sitagliptin 100 mg tablet 100 mg PO QDAY 90 Days #90 tab 03/09/18 Allergies Allergy/AdvReac Type Severity Reaction Status Date / Time No Known Allergies Allergy Verified 03/16/18 10:06 [facility] History I have reviewed the patient's past medical history: Yes Medical History: Reports:: Asthma, Chronic Obstructive Pulmonary Disease (COPD) , Diabetes Mellitus Type 2, Gastroesophageal Reflux Disease(GERD), Home Oxygen, Hyperlipidemia, Hypertension, Kidney Stones, MRSA Laterality Cases: Left: Arthroscopy Shoulder, Bilateral: Total Knee Replacement Other Surgeries: Yes: Coronary Stent, , Hysterectomy-Total Amputation: No Fractures: No Comment: KNEE REPLACEMENTS - Social History Smoking Status: Current every day smoker Tobacco Type: cigarettes # Packs/Day (cigarettes): 3 Alcohol Intake: never Substance Use Type: denies use Occupational Status: retired Housing: house Household Members: family - Psychiatric History Expresses thoughts of harming self/others: None Suicide Plan Description: No Plan Family Hx:: Diabetes Comment: PSOROSIS ROS Obtained: Yes All systems reviewed & no additional complaints, Yes Systems reviewed as appropriate & no additional complaints - Constitutional Constitutional: Reports weakness - Respiratory Respiratory: Yes as per HPI, Yes cough, Yes dyspnea, Yes dyspnea on exertion Physical Exam - General General appearance: alert, in distress (mild) - Head Head exam: atraumatic, normocephalic, normal inspection - Neck Neck exam: Present: normal inspection, full ROM, trachea midline. Absent: meningismus, lymphadenopathy - Chest Chest inspection: Present: normal inspection, symmetric chest wall rise. Absent : tenderness - Respiratory Respiratory exam: Present: wheezes. Absent: respiratory distress - Cardiovascular Cardiovascular exam: Present: regular rate, normal rhythm. Absent: JVD - Abdominal Exam Abdominal exam: Present: soft, normal bowel sounds. Absent: distention, tenderness, guarding - Extremities Exam Extremities exam: Present: normal inspection, full ROM, normal capillary refill. Absent: calf tenderness - Back Exam Back exam: Present: normal inspection. Absent: tenderness - Neurological Exam Neurological exam: Present: alert, oriented X3 - Psychiatric Psychiatric exam: Present: normal affect, normal mood - Skin Skin exam: Present: warm, dry, intact, normal color - Lymphatic Lymphatic Findings: no adenopathy
[2018-03-16 16:55] LABS: Basophils % 0.3 % (0.1-2.0); Eosinophils # 0.1 K/mm3 (0.0-0.4); Eosinophils % 1.2 % (0.1-12.0); Hemoglobin 10.7 g/dL (12.2-16.2); Lymphocytes # 1.6 K/mm3 (0.7-4.5); Lymphocytes % 20.7 K/mm3 (10-50); Mean Corpuscular HGB Conc 30.5 g/dL (31.8-35.4); Mean Corpuscular Volume 101.5 fl (81-99); Mean Platelet Volume 6.7 fl (7.4-10.4); Monocytes # 0.3 K/mm3 (0.1-1.0); Monocytes % 3.9 % (1.7-9.3); Neutrophils # 5.8 K/mm3 (1.8-7.8); Neutrophils % 73.9 % (37.0-80.0); Platelet Count 483 K/mm3 (142-424); Red Blood Count 3.45 M/mm3 (4.20-5.40); Red Cell Distribution Width 15.4 % (11.5-17.5); White Blood Count 7.9 K/mm3 (4.8-10.8)
[2018-03-16 16:59] LABS: ABG Base Excess 2.1 mmol/L (-2.4-2.3); ABG Oxygen Saturation 97 % (90-100); ABG PCO2 45.7 mmhg (35.0-45.0); ABG PH 7.39 mmol/L (7.35-7.45); ABG TCO2 28.4 mmhg (23-27)
[2018-03-16 17:00] LABS: Oxygen 32 %
[2018-03-16 17:01] LABS: Allen's Test Acceptable
[2018-03-16 17:10] LABS: Albumin/Globulin Ratio 0.4 (1.1-1.8); Anion Gap 9.2 mEq/L (5-15); Bilirubin,Total 0.3 mg/dL (0.2-1.0); Calcium 8.7 mg/dL (8.5-10.1); Globulin 5.6 gm/dl (1.3-3.2); Potassium 5.2 mmoL/L (3.5-5.1); Total Protein,Serum 7.6 gm/dL (6.4-8.2)
[2018-03-16 17:25] LABS: Creatine Kinase 42 U/L (26-192)
--- NOTE | 2018-03-16 22:19 | History & Physical Report ---
*Admission Date: 03/16/18 *Chief complaint: sob *History of present illness: this wf who has progressive sob with cough and congestion on chronic o2 but still smokes was seen in office and reffered to ed- tient was recently diagnosed with pneumonia, and has been currently been on antibiotics (Bactrim), day #4. She went to Dr. Ashley's office, where she was found to be weak, lacking adequate clinical improvement, so she was sent to the emergency room for workup and admission. Patient has a history of pulmonary fibrosis,, and she is currently oxygen dependent, 2 L per nasal cannula. [facility] History I have reviewed the patient's past medical history: Yes Medical History: Reports:: Asthma, Chronic Obstructive Pulmonary Disease (COPD) , Diabetes Mellitus Type 2, Gastroesophageal Reflux Disease(GERD), Home Oxygen, Hyperlipidemia, Hypertension, Kidney Stones, MRSA Laterality Cases: Left: Arthroscopy Shoulder, Bilateral: Total Knee Replacement Other Surgeries: Yes: Coronary Stent, , Hysterectomy-Total Amputation: No Fractures: No - *Social History Smoking Status: Current every day smoker Tobacco Type: cigarettes # Packs/Day (cigarettes): 3 Alcohol Intake: never Substance Use Type: denies use Occupational Status: retired Housing: house Household Members: family - Psychiatric History Expresses thoughts of harming self/others: None Suicide Plan Description: No Plan *Family Hx:: Diabetes Review of Systems - Review of Systems Review of systems:: pertinent systems reviewed and negative unless documented below - Constitutional Reports chills, Reports fatigue, Reports fever(s) - Eyes Denies change in vision - ENT Denies sore throat - *Cardiovascular Reports chest pain, Reports shortness of breath - *Respiratory Reports cough, Denies coughing up blood - *Gastrointestinal Denies abdominal pain - *Genitourinary Denies blood in urine - *Musculoskeletal Denies joint pain, Denies joint swelling - Integumentary/Breasts Denies rash - *Neurologic Reports weakness, Denies localized weakness, Denies seizure-like activity - Psychiatric Denies anxiety Meds Home Medications Medication Instructions Recorded Confirmed Type furosemide 40 mg tablet 40 mg PO DAILY 08/26/17 03/16/18 History insulin glargine (U-100) 100 40 unit SUB-Q DAILY ml 08/26/17 03/16/18 History unit/mL (3 mL) subcutaneous pen metoprolol succinate ER 25 mg 25 mg PO BID 08/26/17 03/16/18 History tablet,extended release 24 hr nitroglycerin 0.4 mg sublingual 0.4 mg SUBLINGUAL Q5M PRN 08/26/17 03/16/18 History tablet albuterol sulfate 2.5 mg/3 mL 1.25 mg INHALATION Q4-6H PRN 09/26/17 03/16/18 History (0.083 %) solution for nebulization Budesonide/Formoterol Fumarate 2 inh INHALATION BID 10/27/17 03/16/18 History [Symbicort 160-4.5 Mcg Inhaler] Omeprazole [Omeprazole 20mg 20 mg PO DAILY 10/27/17 03/16/18 History Capsule] Potassium Chloride [K-Tab ER 20 20 meq PO BID 10/27/17 03/16/18 History mEq] Sulfamethoxazole/Trimethoprim 1 tab PO BID 10/27/17 03/16/18 History [Sulfamethoxazole-Tmp Ds Tablet] Pioglitazone HCl/Metformin HCl 1 tab PO BID 03/12/18 03/16/18 History [Pioglitazone-Metformin 15-850] Clopidogrel Bisulfate [Plavix 75mg 75 mg PO DAILY 03/16/18 03/16/18 History Tab] Allergies Allergy/AdvReac Type Severity Reaction Status Date / Time No Known Allergies Allergy Verified 03/16/18 10:06 Exam Vital signs and Labs for Last 24 Hours: Temp Pulse Resp BP Pulse Ox 98.5 F 78 18 98/55 97 03/16/18 20:00 03/16/18 20:00 03/16/18 20:00 03/16/18 20:00 03/16/18 20:00 Laboratory Results - last 24 hr 03/16/18 16:45: WBC 7.9, RBC 3.45 L, Hgb 10.7 L, Hct 35.0 L, MCV 101.5 H, MCH 31.0, MCHC 30.5 L, RDW 15.4, Plt Count 483 H, MPV 6.7 L, Neut % (Auto) 73.9, Lymph % (Auto) 20.7, [place] % (Auto) 3.9, Eos % (Auto) 1.2, Baso % (Auto) 0.3, Neut # (Auto) 5.8, Lymph # (Auto) 1.6, [place] # (Auto) 0.3, Eos # (Auto) 0.1, Baso # (Auto) 0.0 03/16/18 16:45: Sodium 132 L, Potassium 5.2 H, Chloride 97 L, Carbon Dioxide 31 , Anion Gap 9.2, BUN 7, Creatinine 0.71, Estimated Creat Clear 63, Estimated GFR 83, Est GFR ( Amer) 101, Glucose 101, Calcium 8.7, Total Bilirubin 0.3, AST 15, ALT 16, Alkaline Phosphatase 164 H, Total Protein 7.6, Albumin 2.0 L, Globulin 5.6 H, Albumin/Globulin Ratio 0.4 L 03/16/18 16:45: Lactate 1.4 03/16/18 16:45: Total Creatine Kinase 42, CK-MB (CK-2) 0.6, CK-MB (CK-2) Rel Index 1.4, Troponin I < 0.02 03/16/18 16:50: Specimen Source Rt radial, O2 % 32, ABG pH 7.39, ABG pCO2 45.7 H , ABG pO2 104.0 H, ABG HCO3 27.0 H, ABG Total CO2 28.4 H, ABG O2 Saturation 97, ABG Base Excess 2.1, Rigo Test Acceptable 03/16/18 17:45: POC Glucose 111 H 03/16/18 18:53: Troponin I < 0.02 03/16/18 21:28: POC Glucose 126 H I & O for Last 24 hours: Intake & Output 03/14/18 03/15/18 03/16/18 03/17/18 11:59 11:59 11:59 11:59 Weight 147 lb 3 oz - Constitutional no acute distress - *Routine HEENT Exam Head: Present: normocephalic Eye: Present: EOMI, PERRL ENT: Present: mucous membranes dry - *Routine Neck Exam Present: supple - *Routine Respiratory Exam Present: decreased breath sounds - *Routine Cardiovascular Exam Present: RRR, murmur - *Routine Abdominal Exam Present: soft - *Routine Extremities Exam Absent: calf tenderness - *Routine Skin Exam Present: intact - *Routine Neurological Exam Present: alert, oriented X3, CN II-XII intact - Routine Psychiatric Exam Present: normal affect H&P: Result - Labs Labs: Short CBC 03/16/18 Range/Units 16:45 WBC 7.9 (4.8-10.8) K/mm3 Hgb 10.7 L (12.2-16.2) g/dL Hct 35.0 L (37.0-47.0) % Plt Count 483 H (142-424) K/mm3 BMP 03/16/18 16:45 Sodium 132 L Potassium 5.2 H Chloride 97 L Carbon Dioxide 31 BUN 7 Creatinine 0.71 Glucose 101 Calcium 8.7 Cardiac Enzymes 03/16/18 03/16/18 Range/Units 16:45 18:53 Total Creatine Kinase 42 (26-192) U/L CK-MB (CK-2) 0.6 (0.0-3.6) ng/ml Troponin I < 0.02 < 0.02 (0.00-0.06) ng/ml Liver Function 03/16/18 Range/Units 16:45 Total Bilirubin 0.3 (0.2-1.0) mg/dL AST 15 (15-37) U/L ALT 16 (12-78) U/L Alkaline Phosphatase 164 H (46-116) U/L Albumin 2.0 L (3.4-5.0) gm/dL Assessment and Plan (1) CAP (community acquired pneumonia) Current visit: Yes Status: Acute Qualifiers: Laterality: right Lung location: upper lobe of lung Qualified Code(s): J18.1 - Lobar pneumonia, unspecified organism Category: Medical Code(s): J18.9 - Pneumonia, unspecified organism (2) CAP (community acquired pneumonia) Current visit: Yes Status: Acute Category: Medical Code(s): J18.9 - Pneumonia, unspecified organism (3) Anemia Current visit: Yes Status: Acute Qualifiers: Anemia type: unspecified type Qualified Code(s): D64.9 - Anemia, unspecified Category: Medical Code(s): D64.9 - Anemia, unspecified (4) Elevated erythrocyte sedimentation rate Current visit: Yes Status: Acute Category: Medical Code(s): R70.0 - Elevated erythrocyte sedimentation rate
--- NOTE | 2018-03-17 07:20 | Pharmacy Consult Notes ---
[facility] Pharmacy VTE Monitoring - Patient Demographics Admission date: 03/16/18 Report Date: 03/17/18 Time: 07:20 Allergies/Adverse Reactions: Patient Allergies No Known Allergies Allergy (Verified 03/16/18 10:06) Height: 1.7 m Weight: 66.763 kg Patient Problems: Current Active Problems Pneumonia (Acute) - VTE Risk Labs: VTE Related Lab Results Hgb 10.7 g/dL (12.2-16.2) L 03/16/18 16:45 Hct 35.0 % (37.0-47.0) L 03/16/18 16:45 Plt Count 483 K/mm3 (142-424) H 03/16/18 16:45 BUN 7 mg/dL (7-18) 03/16/18 16:45 Creatinine 0.71 mg/dL (0.55-1.02) 03/16/18 16:45 Estimated Creat Clear 63 mL/min (0-300) 03/16/18 16:45 - Prophylaxis VTE Prophylaxis Ordered?: Yes Types of VTE Prophylaxis: TEDS Knee High Location of Applied Device: Bilateral Lower Extremeties - VTE Diagnosis Confirmed Treatment or plan recommended: Continue Current Treatment
--- NOTE | 2018-03-17 09:17 | Progress Note ---
Internal Medicine - PN: Subj *Date: 03/17/18 *Time: 09:15 Interval history: doing better this am on abx Exam Vital signs and Labs for Last 24 Hours: Temp Pulse Resp BP Pulse Ox 98.2 F 87 14 130/66 95 03/17/18 08:03 03/17/18 08:03 03/17/18 08:03 03/17/18 08:03 03/17/18 08:03 Laboratory Results - last 24 hr 03/16/18 16:45: WBC 7.9, RBC 3.45 L, Hgb 10.7 L, Hct 35.0 L, MCV 101.5 H, MCH 31.0, MCHC 30.5 L, RDW 15.4, Plt Count 483 H, MPV 6.7 L, Neut % (Auto) 73.9, Lymph % (Auto) 20.7, [place] % (Auto) 3.9, Eos % (Auto) 1.2, Baso % (Auto) 0.3, Neut # (Auto) 5.8, Lymph # (Auto) 1.6, [place] # (Auto) 0.3, Eos # (Auto) 0.1, Baso # (Auto) 0.0 03/16/18 16:45: Sodium 132 L, Potassium 5.2 H, Chloride 97 L, Carbon Dioxide 31 , Anion Gap 9.2, BUN 7, Creatinine 0.71, Estimated Creat Clear 63, Estimated GFR 83, Est GFR ( Amer) 101, Glucose 101, Calcium 8.7, Total Bilirubin 0.3, AST 15, ALT 16, Alkaline Phosphatase 164 H, Total Protein 7.6, Albumin 2.0 L, Globulin 5.6 H, Albumin/Globulin Ratio 0.4 L 03/16/18 16:45: Lactate 1.4 03/16/18 16:45: Total Creatine Kinase 42, CK-MB (CK-2) 0.6, CK-MB (CK-2) Rel Index 1.4, Troponin I < 0.02 03/16/18 16:50: Specimen Source Rt radial, O2 % 32, ABG pH 7.39, ABG pCO2 45.7 H , ABG pO2 104.0 H, ABG HCO3 27.0 H, ABG Total CO2 28.4 H, ABG O2 Saturation 97, ABG Base Excess 2.1, Rigo Test Acceptable 03/16/18 17:45: POC Glucose 111 H 03/16/18 18:53: Troponin I < 0.02 03/16/18 21:28: POC Glucose 126 H 03/16/18 21:45: Troponin I < 0.02 03/17/18 00:45: Troponin I < 0.02 03/17/18 05:19: ESR 108 H 03/17/18 06:10: POC Glucose 137 H I & O for Last 24 hours: Intake & Output 03/14/18 03/15/18 03/16/18 03/17/18 11:59 11:59 11:59 11:59 Intake Total 1063 / 1063 Balance 1063 / 1063 Weight 147 lb 3 oz Microbiology Reports for the Last 24 Hours: Microbiology 03/17/18 05:55 Sputum - Expectorated Sputum Gram Stain - Final - Constitutional no acute distress - *Routine HEENT Exam Head: Present: normocephalic Eye: Present: EOMI, PERRL ENT: Present: mucous membranes dry - *Routine Neck Exam Present: supple - *Routine Respiratory Exam Present: CTA bilaterally - *Routine Cardiovascular Exam Present: RRR, murmur - *Routine Abdominal Exam Present: soft - *Routine Extremities Exam Absent: calf tenderness - *Routine Skin Exam Present: intact - *Routine Neurological Exam Present: alert, oriented X3, CN II-XII intact - Routine Psychiatric Exam Present: normal affect Assessment and Plan (1) CAP (community acquired pneumonia) Current visit: Yes Status: Acute Qualifiers: Laterality: right Lung location: upper lobe of lung Qualified Code(s): J18.1 - Lobar pneumonia, unspecified organism Category: Medical Code(s): J18.9 - Pneumonia, unspecified organism (2) CAP (community acquired pneumonia) Current visit: Yes Status: Acute Category: Medical Code(s): J18.9 - Pneumonia, unspecified organism (3) Anemia Current visit: Yes Status: Acute Qualifiers: Anemia type: unspecified type Qualified Code(s): D64.9 - Anemia, unspecified Category: Medical Code(s): D64.9 - Anemia, unspecified (4) Elevated erythrocyte sedimentation rate Current visit: Yes Status: Acute Category: Medical Code(s): R70.0 - Elevated erythrocyte sedimentation rate
[2018-03-18 08:00] VITALS: BP 131/73
--- NOTE | 2018-03-18 08:48 | Discharge Summary ---
General - General Admission date:: 03/16/18 Discharge date: 03/18/18 HPI HPI: this wf who has progressive sob with cough and congestion on chronic o2 but still smokes was seen in office and reffered to ed- tient was recently diagnosed with pneumonia, and has been currently been on antibiotics (Bactrim), day #4. She went to Dr. Ashley's office, where she was found to be weak, lacking adequate clinical improvement, so she was sent to the emergency room for workup and admission. Patient has a history of pulmonary fibrosis,, and she is currently oxygen dependent, 2 L per nasal cannula. Hospital Course Hospital Course: pt has did better with no fever and has tolerated diet and feels better with resp- she has pul appt friday - will d/c on steroids and abx and follow op esr - Objective Vital signs: Temp Pulse Resp BP Pulse Ox 98.2 F 86 18 131/73 98 03/18/18 07:58 03/18/18 07:58 03/18/18 07:58 03/18/18 07:58 03/18/18 07:58 no acute distress - *Routine HEENT Exam Head: Present: normocephalic Eye: Present: EOMI, PERRL ENT: Present: mucous membranes dry - *Routine Neck Exam Present: supple - *Routine Respiratory Exam Present: rhonchi - *Routine Cardiovascular Exam Present: RRR, murmur, S4 - *Routine Abdominal Exam Present: soft - *Routine Extremities Exam Absent: edema, calf tenderness - *Routine Skin Exam Present: intact - *Routine Neurological Exam Present: alert, oriented X3, CN II-XII intact - Routine Psychiatric Exam Present: normal affect Results Labs on day of discharge: Labs from last 24 hours 03/18/18 03/17/18 03/17/18 06:10 20:54 16:58 POC Glucose 171 H 195 H 187 H 03/17/18 11:36 POC Glucose 176 H Preliminary micro results at discharge 03/17/18 05:55 Sputum Culture - Preliminary Sputum - Expectorated Sputum DS: Diagnosis - Discharge Diagnosis (1) CAP (community acquired pneumonia) Status: Acute (2) CAP (community acquired pneumonia) Status: Acute (3) Anemia Status: Acute (4) Elevated erythrocyte sedimentation rate Status: Acute (5) Pulmonary fibrosis Status: Chronic (6) Diabetes mellitus Status: Acute Discharge Plan - Patient Discharge Instructions ACTIVITY: Continue current activity DIET: continue same diet - Follow up Plan Disposition: Home, Self-Assisted Medications: Home Medications Medication Instructions Recorded Confirmed Type furosemide 40 mg tablet 40 mg PO DAILY 08/26/17 03/16/18 History insulin glargine (U-100) 100 40 unit SUB-Q DAILY ml 08/26/17 03/16/18 History unit/mL (3 mL) subcutaneous pen nitroglycerin 0.4 mg sublingual 0.4 mg SUBLINGUAL Q5M PRN 08/26/17 03/16/18 History tablet albuterol sulfate 2.5 mg/3 mL 3 mg INHALATION Q4-6H PRN 09/26/17 03/17/18 History (0.083 %) solution for nebulization Budesonide/Formoterol Fumarate 2 puffs INHALATION BID 10/27/17 03/17/18 History [Symbicort 160-4.5 Mcg Inhaler] Omeprazole [Omeprazole 20mg 20 mg PO DAILY 10/27/17 03/16/18 History Capsule] Potassium Chloride [K-Tab ER 20 40 meq PO DAILY 10/27/17 03/17/18 History mEq] Sulfamethoxazole/Trimethoprim 1 tab PO BID 10/27/17 03/16/18 History [Sulfamethoxazole-Tmp Ds Tablet] Pioglitazone HCl/Metformin HCl 1 tab PO BID 03/12/18 03/16/18 History [Pioglitazone-Metformin 15-850] Clopidogrel Bisulfate [Plavix 75mg 75 mg PO DAILY 03/16/18 03/16/18 History Tab] Estrogens, Conjugated [Premarin 0.625 mg PO DAILY 03/17/18 03/17/18 History 0.625mg tablet] Gabapentin [Gabapentin 800mg Tab] 800 mg PO QID 03/17/18 03/17/18 History Ipratropium/Albuterol Sulfate 1 puff IH QIDP PRN 03/17/18 03/17/18 History [Combivent Respimat Inh] Isosorbide Mononitrate [Imdur 30mg 30 mg PO DAILY 03/17/18 03/17/18 History ER tablet] Montelukast Sodium [Montelukast 10 mg PO HS 03/17/18 03/17/18 History 10mg Tab] Pantoprazole Sodium [Protonix 40mg 40 mg PO DAILY 03/17/18 03/17/18 History tablet] Sitagliptin Phosphate [Januvia] 100 mg PO DAILY 03/17/18 03/17/18 History clonazePAM [Clonazepam] 0.5 mg PO BID 03/17/18 03/17/18 History Prescriptions/Medication Reconciliation: New Ceftriaxone Sodium [Rocephin 1gm vial] 1 gm IV Q24H vial clonazePAM [Klonopin 0.5mg tablet] 0.5 mg PO BID tablet Gabapentin [Neurontin 400mg cap] 800 mg PO QID capsule Metoprolol Succinate [Toprol XL 25mg tablet] 25 mg PO BID tab.er.24h Montelukast Sodium [Singulair 10mg tablet] 10 mg PO HS tablet Azithromycin [Zithromax 250mg tab] 250 mg PO DIRECTED #6 tab predniSONE [Prednisone 20mg Tab] 20 mg PO BID #10 tab Azithromycin [Zithromax 500mg ADV] 500 mg IV Q24H vial.[place] Isosorbide Mononitrate [Imdur 30mg ER tablet] 30 mg PO DAILY tablet Continue furosemide 40 mg tablet 40 mg PO DAILY insulin glargine (U-100) 100 unit/mL (3 mL) subcutaneous pen 40 unit SUB-Q DAILY ml nitroglycerin 0.4 mg sublingual tablet 0.4 mg SUBLINGUAL Q5M PRN PRN Reason: Chest Pain albuterol sulfate 2.5 mg/3 mL (0.083 %) solution for nebulization 3 mg INHALATION Q4-6H PRN PRN Reason: breathing problems lisinopril 10 mg tablet 10 mg PO DAILY #90 tab atorvastatin 20 mg tablet 20 mg PO DAILY #90 tab Potassium Chloride [K-Tab ER 20 mEq] 40 meq PO DAILY Budesonide/Formoterol Fumarate [Symbicort 160-4.5 Mcg Inhaler] 2 puffs INHALATION BID Pioglitazone HCl/Metformin HCl [Pioglitazone-Metformin 15-850] 1 tab PO BID Clopidogrel Bisulfate [Plavix 75mg Tab] 75 mg PO DAILY clonazePAM [Clonazepam] 0.5 mg PO BID Isosorbide Mononitrate [Imdur 30mg ER tablet] 30 mg PO DAILY Gabapentin [Gabapentin 800mg Tab] 800 mg PO QID Estrogens, Conjugated [Premarin 0.625mg tablet] 0.625 mg PO DAILY Montelukast Sodium [Montelukast 10mg Tab] 10 mg PO HS Sitagliptin Phosphate [Januvia] 100 mg PO DAILY Pantoprazole Sodium [Protonix 40mg tablet] 40 mg PO DAILY Ipratropium/Albuterol Sulfate [Combivent Respimat Inh] 1 puff IH QIDP PRN PRN Reason: Shortness Of Breath Discontinued Sulfamethoxazole/Trimethoprim [Sulfamethoxazole-Tmp Ds Tablet] 1 tab PO BID Omeprazole [Omeprazole 20mg Capsule] 20 mg PO DAILY
== END 2018-03-18 10:18 | disposition home or self-care (01) ==
LOC: 2ND 16:13 → ER 16:13 → 2ND 17:39
PROVIDERS: ADMIT Emergency Medicine; ATTEND Emergency Medicine

== ENCOUNTER 2018-03-30 13:47 | Observation (INO) ==
[2018-03-30 14:27] LABS: Basophils % 0.3 % (0.1-2.0); Eosinophils # 0.1 K/mm3 (0.0-0.4); Eosinophils % 1.8 % (0.1-12.0); Hematocrit 34.2 % (37.0-47.0); Hemoglobin 10.5 g/dL (12.2-16.2); Lymphocytes # 1.4 K/mm3 (0.7-4.5); Lymphocytes % 21.3 K/mm3 (10-50); Mean Corpuscular HGB Conc 30.7 g/dL (31.8-35.4); Mean Corpuscular Hemoglobin 32.2 pg (27.0-31.2); Mean Corpuscular Volume 104.9 fl (81-99); Mean Platelet Volume 6.7 fl (7.4-10.4); Monocytes # 0.5 K/mm3 (0.1-1.0); Monocytes % 7.4 % (1.7-9.3); Neutrophils # 4.5 K/mm3 (1.8-7.8); Neutrophils % 69.2 % (37.0-80.0); Platelet Count 359 K/mm3 (142-424); Red Blood Count 3.26 M/mm3 (4.20-5.40); Red Cell Distribution Width 19.5 % (11.5-17.5); White Blood Count 6.5 K/mm3 (4.8-10.8)
[2018-03-30 14:28] LABS: ABG Base Excess 2.2 mmol/L (-2.4-2.3); ABG HCO3 27.5 mmhg (22.0-26.0); ABG Oxygen Saturation 99 % (90-100); ABG PCO2 48.6 mmhg (35.0-45.0); ABG PH 7.37 mmol/L (7.35-7.45)
[2018-03-30 14:29] LABS: Oxygen 3L %
[2018-03-30 14:30] LABS: Allen's Test Acceptable
[2018-03-30 14:41] LABS: Albumin Level 2.5 gm/dL (3.4-5.0); Albumin/Globulin Ratio 0.5 (1.1-1.8); Anion Gap 10.2 mEq/L (5-15); Bilirubin,Total 0.5 mg/dL (0.2-1.0); Calcium 8.8 mg/dL (8.5-10.1); Globulin 4.6 gm/dl (1.3-3.2); Potassium 4.2 mmoL/L (3.5-5.1); Total Protein,Serum 7.1 gm/dL (6.4-8.2)
--- NOTE | 2018-03-30 14:52 | Emergency Department Note ---
ED Disposition Clinical Impression: Acute exacerbation of chronic obstructive airways disease CAP (community acquired pneumonia) Qualifiers: Laterality: unspecified laterality Qualified Code(s): J18.9 - Pneumonia, unspecified organism Anemia Qualifiers: Anemia type: unspecified type Qualified Code(s): D64.9 - Anemia, unspecified Sacral decubitus ulcer Qualifiers: Pressure injury stage: stage 1 Qualified Code(s): L89.151 - Pressure ulcer of sacral region, stage 1 Disposition: Admitted as Observation Condition on Discharge: Good Referrals: Winsome Vo PA [Primary Care Provider] - - Critical Care Critical Care Time: No Attestation: On 03/30/18, the high probability of a clinically significant, sudden or life threatening deterioration of the following system(s) required my full and direct attention, intervention and personal management. The time I documented below is in addition to time spent performing reported procedures but includes the following listed in this critical care notation. Medical Decision Making - Medical Records Medical records reviewed: Yes: I reviewed the patient's medical records. - Shamar Inquiry Pt receiving controlled substance: No Vital Signs: 03/30/18 13:51 03/30/18 14:38 03/30/18 15:27 Temperature 98.7 F Temperature Source Oral Pulse Rate 82 Pulse Rate [Right Brachial] 95 H 88 Respiratory Rate 22 Blood Pressure [Right Arm] 148/78 117/68 Blood Pressure Mean [Right Arm] 101 84 Blood Pressure Source [Right Arm] Automatic Cuff Automatic Cuff Blood Pressure Position [Right Arm] Sitting Sitting 02 Sat by Pulse Oximetry 93 L 98 Oxygen Delivery Method Nasal Cannula Nasal Cannula Oxygen Flow Rate (LPM) 2 2 - Lab Data Lab results reviewed: Yes: I reviewed the patient's lab results. Lab Results 03/30/18 14:05: Specimen Source Left radial, O2 % 3l, ABG pH 7.37, ABG pCO2 48.6 H, ABG pO2 138.0 H, ABG HCO3 27.5 H, ABG Total CO2 29.0 H, ABG O2 Saturation 99, ABG Base Excess 2.2, Rigo Test Acceptable 03/30/18 14:09: WBC 6.5, RBC 3.26 L, Hgb 10.5 L, Hct 34.2 L, MCV 104.9 H, MCH 32.2 H, MCHC 30.7 L, RDW 19.5 H, Plt Count 359, MPV 6.7 L, Neut % (Auto) 69.2, Lymph % (Auto) 21.3, [place] % (Auto) 7.4, Eos % (Auto) 1.8, Baso % (Auto) 0.3, Neut # (Auto) 4.5, Lymph # (Auto) 1.4, [place] # (Auto) 0.5, Eos # (Auto) 0.1, Baso # (Auto) 0.0 03/30/18 14:09: Sodium 134 L, Potassium 4.2, Chloride 100, Carbon Dioxide 28, Anion Gap 10.2, BUN 5 L, Creatinine 0.51 L, Estimated Creat Clear 67, Estimated GFR 122, Est GFR ( Amer) 148, Glucose 88, Calcium 8.8, Total Bilirubin 0.5, AST 18, ALT 17, Alkaline Phosphatase 100, Total Protein 7.1, Albumin 2.5 L , Globulin 4.6 H, Albumin/Globulin Ratio 0.5 L 03/30/18 14:09: Lactate 0.6 03/30/18 14:09: B-Natriuretic Peptide 231 H 03/30/18 14:09: Troponin I < 0.02 Result diagrams: 03/30/18 14:09 03/30/18 14:09 Orders (Tests/Meds): ED MEDICATIONS Generic Name Dose Route Start Last Admin Trade Name Freq PRN Reason Stop Dose Admin Cefepime HCl 2 gm/ Sodium 100 mls @ 200 mls/hr 03/30/18 15:45 Chloride IV 04/13/18 15:44 Q8H NI Protocol Levofloxacin/Dextrose 750 mg in 150 mls @ 100 mls/hr 03/30/18 15:45 Levofloxacin 750mg/150ml Premix IV 04/13/18 15:44 Q24H NI Protocol Sodium Chloride 3 ml 03/30/18 15:24 Sodium Chloride 3% 15ml Neb IH 04/29/18 15:23 ONCE PRN INDUCE SPUTUM COLLECTION Discontinued Medications Generic Name Dose Route Start Last Admin Trade Name Freq PRN Reason Stop Dose Admin Albuterol/Ipratropium 3 ml 03/30/18 14:05 03/30/18 14:36 Duoneb 3ml Neb IH 03/30/18 14:06 3 ml ONCE ONE Administration Methylprednisolone Sodium Succinate 125 mg 03/30/18 15:32 Solu-Medrol 125mg/2ml Vial IV 03/30/18 15:33 ONCE ONE ORDERS Category Date Time Status B12 level [Vitamin B12] Routine Lab 03/30/18 15:26 Ordered Folate Routine Lab 03/30/18 15:25 Ordered Blood Culture Stat Micro 03/30/18 14:09 Received Sputum Culture & Gram Stain Stat Micro 03/30/18 15:24 Ordered - Radiology Data #1 Image(s): Chest Image Reviewed: Yes I reviewed the patient's radiology image Preliminary Findings: Abnormal (copd/cap) - ECG Data Tracing #1 I reviewed this ECG and interpreted as documented below: Arrhythmias present: sinus tach Ischemic changes: non-specific ST-T wave changes Resp/SOB HPI - General Chief Complaint: Shortness of Breath/Dyspnea Stated Complaint: SOA Time Seen by Provider: 03/30/18 14:10 Mode of Arrival: Wheelchair Source of Information: Patient, Spouse, Medical Record Limitations: No Limitations Description of Symptoms (Recalled from ER Triage Doc. by RN): Pt c/o SOA x3 days. Family reports pt was just recently treated in the hospital for pneumonia. Pt reports productive cough, pt is home 02 dependent at 2L per NC - History of Present Illness pt with progressive sob with prod cough who was admitted about 1 week ago and despite home treatment has inc sx and sob with ambulation - has been compliant with meds Complaint: shortness of breath, cough Onset (ago): day(s) Context: recent illness Severity: moderate Known history of: COPD Associated symptoms: denies other symptoms Treatment prior to arrival: oxygen, bronchodilator - Related Data Home oxygen amount: 2 liters Home Medications Medication Instructions Recorded Confirmed furosemide 40 mg tablet 40 mg PO DAILY 08/26/17 03/16/18 insulin glargine (U-100) 100 40 unit SUB-Q DAILY ml 08/26/17 03/16/18 unit/mL (3 mL) subcutaneous pen nitroglycerin 0.4 mg sublingual 0.4 mg SUBLINGUAL Q5M PRN 08/26/17 03/16/18 tablet albuterol sulfate 2.5 mg/3 mL 3 mg INHALATION Q4-6H PRN 09/26/17 03/17/18 (0.083 %) solution for nebulization Budesonide/Formoterol Fumarate 2 puffs INHALATION BID 10/27/17 03/17/18 [Symbicort 160-4.5 Mcg Inhaler] Potassium Chloride [K-Tab ER 20 40 meq PO DAILY 10/27/17 03/17/18 mEq] Pioglitazone HCl/Metformin HCl 1 tab PO BID 03/12/18 03/16/18 [Pioglitazone-Metformin 15-850] Clopidogrel Bisulfate [Plavix 75mg 75 mg PO DAILY 03/16/18 03/16/18 Tab] Estrogens, Conjugated [Premarin 0.625 mg PO DAILY 03/17/18 03/17/18 0.625mg tablet] Gabapentin [Gabapentin 800mg Tab] 800 mg PO QID 03/17/18 03/17/18 Ipratropium/Albuterol Sulfate 1 puff IH QIDP PRN 03/17/18 03/17/18 [Combivent Respimat Inh] Isosorbide Mononitrate [Imdur 30mg 30 mg PO DAILY 03/17/18 03/17/18 ER tablet] Montelukast Sodium [Montelukast 10 mg PO HS 03/17/18 03/17/18 10mg Tab] Pantoprazole Sodium [Protonix 40mg 40 mg PO DAILY 03/17/18 03/17/18 tablet] Sitagliptin Phosphate [Januvia] 100 mg PO DAILY 03/17/18 03/17/18 clonazePAM [Clonazepam] 0.5 mg PO BID 03/17/18 03/17/18 Previous Rx's Medication Instructions Recorded Ceftriaxone Sodium [Rocephin 1gm 1 gm IV Q24H vial 03/18/18 vial] Gabapentin [Neurontin 400mg 800 mg PO QID capsule 03/18/18 cap] Isosorbide Mononitrate [Imdur 30mg 30 mg PO DAILY tablet 03/18/18 ER tablet] Metoprolol Succinate [Toprol XL 25 mg PO BID tab.er.24h 03/18/18 25mg tablet] Montelukast Sodium [Singulair 10mg 10 mg PO HS tablet 03/18/18 tablet] atorvastatin 20 mg tablet 20 mg PO DAILY #90 tab 03/18/18 clonazePAM [Klonopin 0.5mg tablet] 0.5 mg PO BID tablet 03/18/18 lisinopril 10 mg tablet 10 mg PO DAILY #90 tab 03/18/18 predniSONE [Prednisone 20mg 20 mg PO BID #10 tab 03/18/18 Tab] albuterol sulfate HFA 90 2 puff INHALATION Q4-6H PRN 30 03/20/18 mcg/actuation aerosol inhaler Days #6.7 g Allergies Allergy/AdvReac Type Severity Reaction Status Date / Time No Known Allergies Allergy Verified 03/16/18 10:06 [facility] History I have reviewed the patient's past medical history: Yes Medical History: Reports:: Asthma, Chronic Obstructive Pulmonary Disease (COPD) , Diabetes Mellitus Type 2, Gastroesophageal Reflux Disease(GERD), Home Oxygen, Hyperlipidemia, Hypertension, Kidney Stones, MRSA Denies:: Diabetes Mellitus Type 1 Laterality Cases: Left: Arthroscopy Shoulder, Bilateral: Total Knee Replacement Other Surgeries: Yes: Coronary Stent, , Hysterectomy-Total Amputation: No Fractures: No Comment: KNEE REPLACEMENTS - Social History Smoking Status: Current every day smoker Tobacco Type: cigarettes # Packs/Day (cigarettes): 3 Alcohol Intake: never Substance Use Type: denies use Occupational Status: retired Housing: house Household Members: family - Psychiatric History Expresses thoughts of harming self/others: None Suicide Plan Description: No Plan Family Hx:: Diabetes Comment: PSOROSIS ROS Obtained: Yes All systems reviewed & no additional complaints - Constitutional Constitutional: Denies fever(s) - Eyes Eyes: Denies change in vision - ENT Ears, Nose, Mouth, and Throat: Denies sore throat - Cardiovascular Cardiovascular: Denies chest pain - Respiratory Respiratory: Yes as per HPI, Yes cough, Yes dyspnea, No coughing up blood - Gastrointestinal Gastrointestingal: Denies: abdominal pain - Genitourinary Female Genitourinary: Denies hematuria - Musculoskeletal Musculoskeletal: Denies joint pain, Denies joint swelling - Integumentary/Breasts Skin/Breast: Denies rash - Neurologic Neurologic: Denies seizure-like activity Physical Exam - General General appearance: in no apparent distress - Head Head exam: normocephalic - Eye Eye exam: Present: PERRL, EOMI - ENT ENT exam: Present: mucous membranes dry - Neck Neck exam: Present: trachea midline - Respiratory Respiratory exam: Present: other (bilat rhonchi ). Absent: respiratory distress - Cardiovascular Cardiovascular exam: Present: regular rate, systolic murmur - Abdominal Exam Abdominal exam: Present: soft - Extremities Exam Extremities exam: Absent: calf tenderness - Neurological Exam Neurological exam: Present: alert, oriented X3, CN II-XII intact - Psychiatric Psychiatric exam: Present: normal affect - Skin Skin exam: Present: other (sacral decubitus prob stage 1 )
[2018-03-31 06:47] LABS: Eosinophils % 0.5 % (0.1-12.0); Hematocrit 30.5 % (37.0-47.0); Lymphocytes # 0.6 K/mm3 (0.7-4.5); Mean Corpuscular HGB Conc 30.4 g/dL (31.8-35.4); Mean Corpuscular Hemoglobin 32.4 pg (27.0-31.2); Mean Corpuscular Volume 106.5 fl (81-99); Mean Platelet Volume 6.7 fl (7.4-10.4); Monocytes # 0.1 K/mm3 (0.1-1.0); Monocytes % 3.9 % (1.7-9.3); Neutrophils # 1.3 K/mm3 (1.8-7.8); Neutrophils % 65.5 % (37.0-80.0); Platelet Count 327 K/mm3 (142-424); Red Blood Count 2.86 M/mm3 (4.20-5.40); Red Cell Distribution Width 19.5 % (11.5-17.5); White Blood Count 1.9 K/mm3 (4.8-10.8)
[2018-03-31 06:56] LABS: Anion Gap 7.1 mEq/L (5-15); Calcium 8.6 mg/dL (8.5-10.1); Chol/HDL Ratio 1.7 (1-3.5); Potassium 4.1 mmoL/L (3.5-5.1)
--- NOTE | 2018-03-31 07:33 | Pharmacy Consult Notes ---
[facility] Pharmacy VTE Monitoring - Patient Demographics Admission date: 03/30/18 Report Date: 03/31/18 Time: 07:33 Allergies/Adverse Reactions: Patient Allergies No Known Allergies Allergy (Verified 03/16/18 10:06) Height: 1.68 m Weight: 70.76 kg Patient Problems: Current Active Problems CAP (community acquired pneumonia) (Acute) Anemia (Acute) Acute exacerbation of chronic obstructive airways disease (Acute) Sacral decubitus ulcer (Acute) - VTE Risk Labs: VTE Related Lab Results Hgb 10.5 g/dL (12.2-16.2) L 03/30/18 14:09 Hct 30.5 % (37.0-47.0) L 03/31/18 06:09 Plt Count 327 K/mm3 (142-424) 03/31/18 06:09 BUN 6 mg/dL (7-18) L 03/31/18 06:09 Creatinine 0.58 mg/dL (0.55-1.02) 03/31/18 06:09 Estimated Creat Clear 65 mL/min (0-300) 03/31/18 06:09 VTE Score: 3 VTE Risk Level: Low Risk - Prophylaxis VTE Prophylaxis Ordered?: Yes Types of VTE Prophylaxis: TEDS Knee High Location of Applied Device: Bilateral Lower Extremeties - VTE Diagnosis Confirmed Treatment or plan recommended: Continue Current Treatment
[2018-03-31 07:38] LABS: Hemoglobin 9.3 g/dL (12.2-16.2)
--- NOTE | 2018-03-31 08:49 | History & Physical Report ---
*Admission Date: 03/30/18 *Chief complaint: sob *History of present illness: this wf who presented to pcp office with sob and cough with prod sputum - no hemoptysis and she was seen in the ed and found to have bilat cap with hx of copd and tob use - she was admitted for ivf fluids and abx with steroids and re sp treatment [facility] History I have reviewed the patient's past medical history: Yes Medical History: Reports:: Asthma, Chronic Obstructive Pulmonary Disease (COPD), Diabetes Mellitus Type 2, Gastroesophageal Reflux Disease(GERD), Heart Murmur (tld when child), Home Oxygen, Hyperlipidemia, Hypertension, Kidney Stones, MRSA Denies:: Cancer, Diabetes Mellitus Type 1 Laterality Cases: Left: Arthroscopy Shoulder, Bilateral: Total Knee Replacement Other Surgeries: Yes: Coronary Stent, , Hysterectomy-Total Amputation: No Fractures: No - *Social History Educational Level: Attended High School Smoking Status: Current every day smoker Tobacco Type: cigarettes # Packs/Day (cigarettes): 3 Alcohol Intake: never Substance Use Type: denies use Occupational Status: retired Housing: house Household Members: family - Psychiatric History Expresses thoughts of harming self/others: None Suicide Plan Description: No Plan *Family Hx:: Diabetes Review of Systems - Review of Systems Review of systems:: pertinent systems reviewed and negative unless documented below - Constitutional Reports weakness, Denies fever(s) - Eyes Denies change in vision - ENT Denies sore throat - *Cardiovascular Reports chest pain, Reports shortness of breath - *Respiratory Reports cough, Reports shortness of breath, Denies coughing up blood - *Gastrointestinal Denies abdominal pain - *Genitourinary Denies blood in urine - *Musculoskeletal Denies joint pain - Integumentary/Breasts Denies rash - *Neurologic Denies seizure-like activity - Psychiatric Reports anxiety Meds Home Medications Medication Instructions Recorded Confirmed Type furosemide 40 mg tablet 40 mg PO DAILY 08/26/17 03/30/18 History insulin glargine (U-100) 100 40 unit SUB-Q DAILY ml 08/26/17 03/30/18 History unit/mL (3 mL) subcutaneous pen nitroglycerin 0.4 mg sublingual 0.4 mg SUBLINGUAL Q5M PRN 08/26/17 03/30/18 History tablet albuterol sulfate 2.5 mg/3 mL 3 mg INHALATION Q4-6H PRN 09/26/17 03/30/18 History (0.083 %) solution for nebulization Budesonide/Formoterol Fumarate 2 puffs INHALATION BID 10/27/17 03/30/18 History [Symbicort 160-4.5 Mcg Inhaler] Potassium Chloride [K-Tab ER 20 40 meq PO DAILY 10/27/17 03/30/18 History mEq] Pioglitazone HCl/Metformin HCl 1 tab PO BID 03/12/18 03/30/18 History [Pioglitazone-Metformin 15-850] Clopidogrel Bisulfate [Plavix 75mg 75 mg PO DAILY 03/16/18 03/30/18 History Tab] Estrogens, Conjugated [Premarin 0.625 mg PO DAILY 03/17/18 03/30/18 History 0.625mg tablet] Ipratropium/Albuterol Sulfate 1 puff IH QIDP PRN 03/17/18 03/30/18 History [Combivent Respimat Inh] Montelukast Sodium [Montelukast 10 mg PO HS 03/17/18 03/30/18 History 10mg Tab] Pantoprazole Sodium [Protonix 40mg 40 mg PO DAILY 03/17/18 03/30/18 History tablet] Sitagliptin Phosphate [Januvia] 100 mg PO DAILY 03/17/18 03/30/18 History Gabapentin [Neurontin 400mg 800 mg PO QID 03/30/18 03/30/18 History cap] Metoprolol Succinate [Toprol XL 25 mg PO BID 03/30/18 03/30/18 History 25mg tablet] clonazePAM [Klonopin 0.5mg tablet] 0.5 mg PO BID 03/30/18 03/30/18 History predniSONE [Prednisone 20mg 20 mg PO BID 03/30/18 03/30/18 History Tab] Allergies Allergy/AdvReac Type Severity Reaction Status Date / Time No Known Allergies Allergy Verified 03/16/18 10:06 Exam Vital signs and Labs for Last 24 Hours: Temp Pulse Resp BP Pulse Ox 97.4 F L 104 H 22 128/69 97 03/31/18 08:00 03/31/18 08:00 03/31/18 08:00 03/31/18 08:00 03/31/18 08:00 Laboratory Results - last 24 hr 03/30/18 14:05: Specimen Source Left radial, O2 % 3l, ABG pH 7.37, ABG pCO2 48.6 H, ABG pO2 138.0 H, ABG HCO3 27.5 H, ABG Total CO2 29.0 H, ABG O2 Saturation 99, ABG Base Excess 2.2, Rigo Test Acceptable 03/30/18 14:09: WBC 6.5, RBC 3.26 L, Hgb 10.5 L, Hct 34.2 L, MCV 104.9 H, MCH 32.2 H, MCHC 30.7 L, RDW 19.5 H, Plt Count 359, MPV 6.7 L, Neut % (Auto) 69.2, Lymph % (Auto) 21.3, [place] % (Auto) 7.4, Eos % (Auto) 1.8, Baso % (Auto) 0.3, Neut # (Auto) 4.5, Lymph # (Auto) 1.4, [place] # (Auto) 0.5, Eos # (Auto) 0.1, Baso # (Auto) 0.0 03/30/18 14:09: Sodium 134 L, Potassium 4.2, Chloride 100, Carbon Dioxide 28, Anion Gap 10.2, BUN 5 L, Creatinine 0.51 L, Estimated Creat Clear 67, Estimated GFR 122, Est GFR ( Amer) 148, Glucose 88, Calcium 8.8, Total Bilirubin 0.5, AST 18, ALT 17, Alkaline Phosphatase 100, Total Protein 7.1, Albumin 2.5 L, Globulin 4.6 H, Albumin/Globulin Ratio 0.5 L 03/30/18 14:09: Lactate 0.6 03/30/18 14:09: B-Natriuretic Peptide 231 H 03/30/18 14:09: Troponin I < 0.02 03/30/18 16:51: Troponin I < 0.02 03/30/18 16:51: Magnesium 1.6 03/30/18 17:12: POC Glucose 116 H 03/30/18 19:35: Troponin I < 0.02 03/30/18 21:08: POC Glucose 255 H 03/30/18 21:58: Troponin I < 0.02 03/31/18 06:09: WBC 1.9 L* D, RBC 2.86 L, Hgb 9.3 L D, Hct 30.5 L, MCV 106.5 H, MCH 32.4 H, MCHC 30.4 L, RDW 19.5 H, Plt Count 327, MPV 6.7 L, Neut % (Auto) 65.5, Lymph % (Auto) 30.0, [place] % (Auto) 3.9, Eos % (Auto) 0.5, Baso % (Auto) 0.0 L, Neut # (Auto) 1.3 L, Lymph # (Auto) 0.6 L, [place] # (Auto) 0.1, Eos # (Auto) 0.0, Baso # (Auto) 0.0 03/31/18 06:09: Sodium 136, Potassium 4.1, Chloride 102, Carbon Dioxide 31, Anion Gap 7.1, BUN 6 L, Creatinine 0.58, Estimated Creat Clear 65, Estimated GFR 105, Est GFR ( Amer) 127, Glucose 163 H D, Calcium 8.6, Triglycerides 52, Cholesterol 147, LDL Cholesterol 52, VLDL Cholesterol 10, HDL Cholesterol 85, Cholesterol/HDL Ratio 1.7 03/31/18 06:10: POC Glucose 162 H I & O for Last 24 hours: Intake & Output 03/28/18 03/29/18 03/30/18 03/31/18 11:59 11:59 11:59 11:59 Intake Total 1845 / 1845 Balance 1845 / 1845 Weight 156 lb Microbiology Reports for the Last 24 Hours: Microbiology 03/30/18 Unknown Sputum - Expectorated Sputum Gram Stain - Final - Constitutional no acute distress - *Routine HEENT Exam Head: Present: normocephalic Eye: Present: EOMI, PERRL ENT: Present: mucous membranes dry - *Routine Neck Exam Absent: JVD - *Routine Respiratory Exam Present: rhonchi, wheezes - *Routine Cardiovascular Exam Present: RRR, murmur, S4 - *Routine Abdominal Exam Present: soft - *Routine Extremities Exam Absent: edema, calf tenderness - *Routine Skin Exam Present: intact - *Routine Neurological Exam Present: alert, oriented X3, CN II-XII intact - Routine Psychiatric Exam Present: normal affect Assessment and Plan (1) COPD (chronic obstructive pulmonary disease) Current visit: Yes Status: Acute Category: Medical Code(s): J44.9 - Chronic obstructive pulmonary disease, unspecified (2) CAP (community acquired pneumonia) Current visit: No Status: Acute Qualifiers: Laterality: right Lung location: upper lobe of lung Qualified Code(s): J18.1 - Lobar pneumonia, unspecified organism Category: Medical Code(s): J18.9 - Pneumonia, unspecified organism (3) Tobacco use Current visit: Yes Status: Acute Category: Social Hx Code(s): Z72.0 - Tobacco use (4) Anemia Current visit: Yes Status: Acute Qualifiers: Anemia type: unspecified type Qualified Code(s): D64.9 - Anemia, unspecified Category: Medical Code(s): D64.9 - Anemia, unspecified
[2018-03-31 13:08] LABS: Basophils % 0.1 % (0.1-2.0); Eosinophils % 0.3 % (0.1-12.0); Hematocrit 31.3 % (37.0-47.0); Hemoglobin 9.6 g/dL (12.2-16.2); Lymphocytes # 0.7 K/mm3 (0.7-4.5); Lymphocytes % 21.6 K/mm3 (10-50); Mean Corpuscular HGB Conc 30.5 g/dL (31.8-35.4); Mean Corpuscular Hemoglobin 31.9 pg (27.0-31.2); Mean Corpuscular Volume 104.7 fl (81-99); Monocytes # 0.2 K/mm3 (0.1-1.0); Neutrophils # 2.4 K/mm3 (1.8-7.8); Platelet Count 347 K/mm3 (142-424); Red Blood Count 2.99 M/mm3 (4.20-5.40); Red Cell Distribution Width 19.3 % (11.5-17.5); White Blood Count 3.3 K/mm3 (4.8-10.8)
[2018-04-01 07:57] LABS: Anion Gap 8.3 mEq/L (5-15); Calcium 8.8 mg/dL (8.5-10.1); Potassium 3.3 mmoL/L (3.5-5.1)
[2018-04-01 08:07] LABS: Basophils % 0.1 % (0.1-2.0); Eosinophils % 0.4 % (0.1-12.0); Hematocrit 30.9 % (37.0-47.0); Hemoglobin 9.5 g/dL (12.2-16.2); Lymphocytes # 0.6 K/mm3 (0.7-4.5); Lymphocytes % 14.7 K/mm3 (10-50); Mean Corpuscular HGB Conc 30.7 g/dL (31.8-35.4); Mean Corpuscular Hemoglobin 32.1 pg (27.0-31.2); Mean Corpuscular Volume 104.4 fl (81-99); Mean Platelet Volume 7.1 fl (7.4-10.4); Monocytes # 0.2 K/mm3 (0.1-1.0); Monocytes % 4.7 % (1.7-9.3); Neutrophils # 3.3 K/mm3 (1.8-7.8); Neutrophils % 80.3 % (37.0-80.0); Platelet Count 318 K/mm3 (142-424); Red Blood Count 2.97 M/mm3 (4.20-5.40); Red Cell Distribution Width 19.8 % (11.5-17.5); White Blood Count 4.2 K/mm3 (4.8-10.8)
--- NOTE | 2018-04-01 09:24 | Progress Note ---
Internal Medicine - PN: Subj *Date: 04/01/18 *Time: 08:03 Interval history: doing better Exam Vital signs and Labs for Last 24 Hours: Temp Pulse Resp BP Pulse Ox 97.6 F 67 22 135/73 97 04/01/18 07:53 04/01/18 07:53 04/01/18 07:53 04/01/18 07:53 04/01/18 08:00 Laboratory Results - last 24 hr 03/31/18 11:11: POC Glucose 174 H 03/31/18 12:00: WBC 3.3 L D, RBC 2.99 L, Hgb 9.6 L, Hct 31.3 L, MCV 104.7 H, MCH 31.9 H, MCHC 30.5 L, RDW 19.3 H, Plt Count 347, MPV 7.0 L, Neut % (Auto) 72.0, Lymph % (Auto) 21.6, [place] % (Auto) 6.0, Eos % (Auto) 0.3, Baso % (Auto) 0.1, Neut # (Auto) 2.4, Lymph # (Auto) 0.7, [place] # (Auto) 0.2, Eos # (Auto) 0.0, Baso # (Auto) 0.0 03/31/18 16:45: POC Glucose 252 H 03/31/18 21:08: POC Glucose 115 H 04/01/18 05:58: POC Glucose 139 H 04/01/18 07:35: WBC 4.2 L D, RBC 2.97 L, Hgb 9.5 L, Hct 30.9 L, MCV 104.4 H, MCH 32.1 H, MCHC 30.7 L, RDW 19.8 H, Plt Count 318, MPV 7.1 L, Neut % (Auto) 80.3 H, Lymph % (Auto) 14.7, [place] % (Auto) 4.7, Eos % (Auto) 0.4, Baso % (Auto) 0.1, Neut # (Auto) 3.3, Lymph # (Auto) 0.6 L, [place] # (Auto) 0.2, Eos # (Auto) 0.0, Baso # (Auto) 0.0 04/01/18 07:35: Sodium 134 L, Potassium 3.3 L, Chloride 100, Carbon Dioxide 29, Anion Gap 8.3, BUN 11 D, Creatinine 0.76 D, Estimated Creat Clear 65, Estimated GFR 77, Est GFR ( Amer) 93 D, Glucose 132 H, Calcium 8.8 I & O for Last 24 hours: Intake & Output 03/29/18 03/30/18 03/31/18 04/01/18 11:59 11:59 11:59 11:59 Intake Total 1994 2486 / 2486 Balance 1994 2486 / 2486 Weight 156 lb Microbiology Reports for the Last 24 Hours: Microbiology 03/30/18 Unknown Sputum - Expectorated Sputum Gram Stain - Final 03/30/18 Unknown Sputum - Expectorated Sputum Sputum Culture - Preliminary - Constitutional no acute distress - *Routine HEENT Exam Head: Present: normocephalic Eye: Present: EOMI, PERRL ENT: Present: mucous membranes dry - *Routine Neck Exam Absent: JVD - *Routine Respiratory Exam Present: rhonchi - *Routine Cardiovascular Exam Present: RRR, murmur - *Routine Abdominal Exam Present: soft - *Routine Extremities Exam Absent: edema - *Routine Skin Exam Present: intact - *Routine Neurological Exam Present: alert, CN II-XII intact - Routine Psychiatric Exam Present: normal affect Assessment and Plan (1) COPD (chronic obstructive pulmonary disease) Current visit: Yes Status: Acute Category: Medical Code(s): J44.9 - Chronic obstructive pulmonary disease, unspecified (2) CAP (community acquired pneumonia) Current visit: No Status: Acute Qualifiers: Laterality: right Lung location: upper lobe of lung Qualified Code(s): J18.1 - Lobar pneumonia, unspecified organism Category: Medical Code(s): J18.9 - Pneumonia, unspecified organism (3) Tobacco use Current visit: Yes Status: Acute Category: Social Hx Code(s): Z72.0 - Tobacco use (4) Anemia Current visit: Yes Status: Acute Qualifiers: Anemia type: unspecified type Qualified Code(s): D64.9 - Anemia, unspecified Category: Medical Code(s): D64.9 - Anemia, unspecified
--- NOTE | 2018-04-02 10:44 | Discharge Summary ---
General - General Admission date:: 03/30/18 Discharge date: 04/02/18 HPI HPI: this wf who presented to pcp office with sob and cough with prod sputum - no hemoptysis and she was seen in the ed and found to have bilat cap with hx of copd and tob use - she was admitted for ivf fluids and abx with steroids and resp treatment Hospital Course Hospital Course: pt has did well with ivf and abx and pulmonary treatment - pt has tolerated diet and has o2 and nebulizer at home - pt will use abx and we discussed tob cessation - labs stable and pt will follow up closely as op Objective Vital signs: Temp Pulse Resp BP Pulse Ox 98.2 F 69 20 128/77 99 04/02/18 07:57 04/02/18 07:57 04/02/18 07:57 04/02/18 07:57 04/02/18 07:57 no acute distress - *Routine HEENT Exam Head: Present: normocephalic Eye: Present: EOMI, PERRL ENT: Present: mucous membranes dry - *Routine Neck Exam Present: supple. Absent: JVD - *Routine Respiratory Exam Present: rhonchi, wheezes - *Routine Cardiovascular Exam Present: RRR, murmur - *Routine Abdominal Exam Present: soft - *Routine Extremities Exam Present: full ROM - *Routine Skin Exam Present: intact - *Routine Neurological Exam Present: alert, oriented X3, CN II-XII intact - Routine Psychiatric Exam Present: normal affect Results Labs on day of discharge: Labs from last 24 hours 04/02/18 04/01/18 04/01/18 06:07 20:23 16:32 POC Glucose 161 H 235 H 154 H Vitamin B12 Folate 04/01/18 03/30/18 03/30/18 11:36 15:45 15:45 POC Glucose 206 H Vitamin B12 840 Folate 8.8 Preliminary micro results at discharge 03/30/18 Unknown Sputum Culture - Preliminary Sputum - Expectorated Sputum 03/30/18 14:09 Blood Culture - Preliminary Blood NO GROWTH AFTER 48 HOURS 03/30/18 14:09 Blood Culture - Preliminary Blood NO GROWTH AFTER 48 HOURS DS: Diagnosis - Discharge Diagnosis (1) COPD (chronic obstructive pulmonary disease) Status: Acute (2) CAP (community acquired pneumonia) Status: Acute (3) Tobacco use Status: Acute (4) Anemia Status: Acute Discharge Plan - Patient Discharge Instructions ACTIVITY: Continue current activity DIET: continue same diet - Follow up Plan Disposition: Home, Self-Longterm Medications: Home Medications Medication Instructions Recorded Confirmed Type furosemide 40 mg tablet 40 mg PO DAILY 08/26/17 03/30/18 History insulin glargine (U-100) 100 40 unit SUB-Q DAILY ml 08/26/17 03/30/18 History unit/mL (3 mL) subcutaneous pen nitroglycerin 0.4 mg sublingual 0.4 mg SUBLINGUAL Q5M PRN 08/26/17 03/30/18 History tablet albuterol sulfate 2.5 mg/3 mL 3 mg INHALATION Q4-6H PRN 09/26/17 03/30/18 History (0.083 %) solution for nebulization Budesonide/Formoterol Fumarate 2 puffs INHALATION BID 10/27/17 03/30/18 History [Symbicort 160-4.5 Mcg Inhaler] Potassium Chloride [K-Tab ER 20 40 meq PO DAILY 10/27/17 03/30/18 History mEq] Pioglitazone HCl/Metformin HCl 1 tab PO BID 03/12/18 03/30/18 History [Pioglitazone-Metformin 15-850] Clopidogrel Bisulfate [Plavix 75mg 75 mg PO DAILY 03/16/18 03/30/18 History Tab] Estrogens, Conjugated [Premarin 0.625 mg PO DAILY 03/17/18 03/30/18 History 0.625mg tablet] Ipratropium/Albuterol Sulfate 1 puff IH QIDP PRN 03/17/18 03/30/18 History [Combivent Respimat Inh] Montelukast Sodium [Montelukast 10 mg PO HS 03/17/18 03/30/18 History 10mg Tab] Pantoprazole Sodium [Protonix 40mg 40 mg PO DAILY 03/17/18 03/30/18 History tablet] Sitagliptin Phosphate [Januvia] 100 mg PO DAILY 03/17/18 03/30/18 History Gabapentin [Neurontin 400mg 800 mg PO QID 03/30/18 03/30/18 History cap] Metoprolol Succinate [Toprol XL 25 mg PO BID 03/30/18 03/30/18 History 25mg tablet] clonazePAM [Klonopin 0.5mg tablet] 0.5 mg PO BID 03/30/18 03/30/18 History predniSONE [Prednisone 20mg 20 mg PO BID 03/30/18 03/30/18 History Tab] Prescriptions/Medication Reconciliation: New clonazePAM [Klonopin 0.5mg tablet] 0.5 mg PO BID tablet Metoprolol Succinate [Toprol XL 25mg tablet] 25 mg PO BID tab.er.24h Pantoprazole Sodium [Protonix 40mg tablet] 40 mg PO DAILY tablet. Nicotine [Nicotine Patch 21mg/24hrs] 21 mg TD DAILY #30 patch levoFLOXacin [Levaquin 500mg tab] 500 mg PO DAILY #7 tab Continue furosemide 40 mg tablet 40 mg PO DAILY insulin glargine (U-100) 100 unit/mL (3 mL) subcutaneous pen 40 unit SUB-Q DAILY ml nitroglycerin 0.4 mg sublingual tablet 0.4 mg SUBLINGUAL Q5M PRN PRN Reason: Chest Pain albuterol sulfate 2.5 mg/3 mL (0.083 %) solution for nebulization 3 mg INHALATION Q4-6H PRN PRN Reason: breathing problems lisinopril 10 mg tablet 10 mg PO DAILY #90 tab atorvastatin 20 mg tablet 20 mg PO DAILY #90 tab albuterol sulfate HFA 90 mcg/actuation aerosol inhaler 2 puff INHALATION Q4- 6H PRN 30 Days #6.7 g PRN Reason: shortness of breath or wheezing Potassium Chloride [K-Tab ER 20 mEq] 40 meq PO DAILY Budesonide/Formoterol Fumarate [Symbicort 160-4.5 Mcg Inhaler] 2 puffs INHALATION BID Pioglitazone HCl/Metformin HCl [Pioglitazone-Metformin 15-850] 1 tab PO BID Clopidogrel Bisulfate [Plavix 75mg Tab] 75 mg PO DAILY Estrogens, Conjugated [Premarin 0.625mg tablet] 0.625 mg PO DAILY Montelukast Sodium [Montelukast 10mg Tab] 10 mg PO HS Sitagliptin Phosphate [Januvia] 100 mg PO DAILY Pantoprazole Sodium [Protonix 40mg tablet] 40 mg PO DAILY Ipratropium/Albuterol Sulfate [Combivent Respimat Inh] 1 puff IH QIDP PRN PRN Reason: Shortness Of Breath clonazePAM [Klonopin 0.5mg tablet] 0.5 mg PO BID Metoprolol Succinate [Toprol XL 25mg tablet] 25 mg PO BID Gabapentin [Neurontin 400mg cap] 800 mg PO QID Isosorbide Mononitrate [Imdur 30mg ER tablet] 30 mg PO DAILY tab Discontinued predniSONE [Prednisone 20mg Tab] 20 mg PO BID
--- NOTE | 2018-04-02 11:31 | Progress Note ---
Internal Medicine - PN: Subj *Date: 04/02/18 *Time: 11:31 Exam Vital signs and Labs for Last 24 Hours: Temp Pulse Resp BP Pulse Ox 98.2 F 69 20 128/77 99 04/02/18 07:57 04/02/18 07:57 04/02/18 07:57 04/02/18 07:57 04/02/18 07:57 Laboratory Results - last 24 hr 03/30/18 15:45: Folate 8.8 03/30/18 15:45: Vitamin B12 840 04/01/18 11:36: POC Glucose 206 H 04/01/18 16:32: POC Glucose 154 H 04/01/18 20:23: POC Glucose 235 H 04/02/18 06:07: POC Glucose 161 H 04/02/18 10:56: POC Glucose 205 H I & O for Last 24 hours: Intake & Output 03/30/18 03/31/18 04/01/18 04/02/18 23:59 23:59 23:59 23:59 Intake Total 510 / 510 2727 / 2727 2457 / 2457 1034 / 1034 Balance 510 / 510 2727 / 2727 2457 / 2457 1034 / 1034 Weight 70.76 kg 70.76 kg 70.76 kg Microbiology Reports for the Last 24 Hours: Microbiology 03/30/18 Unknown Sputum - Expectorated Sputum Gram Stain - Final 03/30/18 Unknown Sputum - Expectorated Sputum Sputum Culture - Preliminary 03/30/18 14:09 Blood Blood Culture - Preliminary NO GROWTH AFTER 48 HOURS 03/30/18 14:09 Blood Blood Culture - Preliminary NO GROWTH AFTER 48 HOURS Assessment and Plan (1) COPD (chronic obstructive pulmonary disease) Current visit: Yes Status: Acute Category: Medical Code(s): J44.9 - Chronic obstructive pulmonary disease, unspecified (2) CAP (community acquired pneumonia) Current visit: No Status: Acute Qualifiers: Laterality: right Lung location: upper lobe of lung Qualified Code(s): J18.1 - Lobar pneumonia, unspecified organism Category: Medical Code(s): J18.9 - Pneumonia, unspecified organism (3) Tobacco use Current visit: Yes Status: Acute Category: Social Hx Code(s): Z72.0 - Tobacco use (4) Anemia Current visit: Yes Status: Acute Qualifiers: Anemia type: unspecified type Qualified Code(s): D64.9 - Anemia, unspecified Category: Medical Code(s): D64.9 - Anemia, unspecified The patient's infection will respond to the chosen ABx?: Yes Is the patient receiving the right drug, dose, and route?: Yes Could a more targeted ABx be ordered?: No (PATIENT IS DISCHARGING ON PO LEVAQUIN)
== END 2018-04-02 12:07 | disposition home or self-care (01) ==
LOC: ER 13:47 → 2ND 13:47
PROVIDERS: ADMIT Emergency Medicine; ATTEND Emergency Medicine

== ENCOUNTER 2018-04-28 12:32 | Observation (INO) ==
--- NOTE | 2018-04-28 12:53 | Emergency Department Note ---
ED Disposition Clinical Impression: COPD exacerbation, Pulmonary fibrosis, unspecified, Tobacco use disorder, CAD (coronary artery disease), Primary atypical pneumonia Clinical Impression: (Ruled Out): RLL pneumonia Disposition: Still a Patient Condition on Discharge: Fair Referrals: Winsome Vo PA [Primary Care Provider] - - Critical Care Critical Care Time: No Attestation: On 04/28/18, the high probability of a clinically significant, sudden or life threatening deterioration of the following system(s) required my full and direct attention, intervention and personal management. The time I documented below is in addition to time spent performing reported procedures but includes the following listed in this critical care notation. Medical Decision Making - Shamar Inquiry Pt receiving controlled substance: No Shamar was queried for this patient: No Vital Signs: 04/28/18 12:35 04/28/18 12:49 04/28/18 13:15 Temperature 98.7 F 98.7 F Temperature Source Axillary Axillary Pulse Rate Pulse Rate [Right Brachial] 130 H 130 H 68 Respiratory Rate 24 24 Blood Pressure [Right Arm] 119/61 119/61 108/56 Blood Pressure Mean [Right Arm] 80 80 73 Blood Pressure Source [Right Arm] Automatic Cuff Automatic Cuff Automatic Cuff Blood Pressure Position [Right Arm] Supine Supine Sitting 02 Sat by Pulse Oximetry 97 97 96 Oxygen Delivery Method Nasal Cannula Nasal Cannula Oxygen Flow Rate (LPM) 2 2 04/28/18 13:22 04/28/18 15:34 Temperature Temperature Source Pulse Rate 129 H Pulse Rate [Right Brachial] 119 H Respiratory Rate Blood Pressure [Right Arm] 122/66 Blood Pressure Mean [Right Arm] 84 Blood Pressure Source [Right Arm] Automatic Cuff Blood Pressure Position [Right Arm] Sitting 02 Sat by Pulse Oximetry 98 Oxygen Delivery Method Oxygen Flow Rate (LPM) - Lab Data Lab Results 04/28/18 13:25: WBC 11.5 H, RBC 3.59 L, Hgb 11.4 L, Hct 37.6, MCV 104.6 H, MCH 31.6 H, MCHC 30.2 L, RDW 17.0, Plt Count 661 H, MPV 7.3 L, Neut % (Auto) 93.7 H, Lymph % (Auto) 4.0 L, [place] % (Auto) 2.0, Eos % (Auto) 0.2, Baso % (Auto) 0.1, Neut # (Auto) 10.8 H, Lymph # (Auto) 0.5 L, [place] # (Auto) 0.2, Eos # (Auto) 0.0, Baso # (Auto) 0.0, Total Counted 100, Neutrophils % (Manual) 95 H, Lymphocytes % (Manual) 5 L, Platelet Estimate Moderate increase, Macrocytosis 2+ 04/28/18 13:25: Sodium 134 L, Potassium 3.9, Chloride 100, Carbon Dioxide 25, Anion Gap 12.9, BUN 4 L, Creatinine 0.48 L, Estimated Creat Clear 63, Estimated GFR 131, Est GFR ( Amer) 159, Glucose 159 H, Calcium 8.6, Total Bilirubin 0.2, AST 14 L, ALT 13, Alkaline Phosphatase 186 H, Total Creatine Kinase 41, CK- MB (CK-2) 2.8 D, CK-MB (CK-2) Rel Index 6.8 H, Troponin I < 0.02, Total Protein 6.9, Albumin 2.1 L, Globulin 4.8 H, Albumin/Globulin Ratio 0.4 L 04/28/18 13:25: Lactate 1.1 04/28/18 13:25: B-Natriuretic Peptide 79 04/28/18 15:05: Specimen Source L brachial, O2 % 3lpm, ABG pH 7.41, ABG pCO2 35.2, ABG pO2 80.9, ABG HCO3 21.8 L, ABG Total CO2 22.8 L, ABG O2 Saturation 96, ABG Base Excess -2.9 L Result diagrams: 04/28/18 13:25 04/28/18 13:25 Orders (Tests/Meds): ED MEDICATIONS Generic Name Dose Route Start Last Admin Trade Name Freq PRN Reason Stop Dose Admin Albuterol/Ipratropium 3 ml 04/28/18 13:00 04/28/18 15:43 Duoneb 3ml Neb IH 05/28/18 12:59 3 ml Q1H NI Administration Sodium Chloride 1,000 mls @ 500 mls/hr 04/28/18 13:00 04/28/18 13:29 Sod Chlor 0.9% 1000ml Bag IV 05/28/18 12:59 500 mls/hr .Q2H NI Administration Levofloxacin/Dextrose 750 mg in 150 mls @ 100 mls/hr 04/28/18 14:15 Levofloxacin 750mg/150ml Premix IV 05/12/18 14:14 Q24H NI Protocol Discontinued Medications Generic Name Dose Route Start Last Admin Trade Name [place] PRN Reason Stop Dose Admin Famotidine 20 mg 04/28/18 12:57 04/28/18 13:29 Pepcid 20mg/2ml Vial IV 04/28/18 12:58 20 mg ONCE ONE Administration Methylprednisolone Sodium Succinate 125 mg 04/28/18 12:57 04/28/18 13:29 Solu-Medrol 125mg/2ml Vial IV 04/28/18 12:58 125 mg ONCE ONE Administration ORDERS Category Date Time Status Blood Culture Stat Micro 04/28/18 13:25 Ordered ABG [Arterial Blood Gas] Stat RT 04/28/18 15:05 Ordered - Radiology Data #1 Image(s): Chest Image Reviewed: Yes I reviewed the patient's radiology image Preliminary Findings: Abnormal Thank bibasilar changes with worsening in the right lung base cannot exclude acute infiltrates. final read: MPRESSION: Chronic pulmonary fibrosis with suspected superimposed pneumonia in the upper lobes slightly worse - ECG Data Tracing #1 Sinus tachycardia 130/min baseline artifact nonspecific T wave changes no acute findings. ECG initial impression date: 04/28/18 ECG initial impression time: 12:45 Medical Decision Narrative: She received IV fluids IV Solu-Medrol DuoNeb and IV antibiotics. She underwent chest x-ray repeated exam shows modest improvement with continued bilateral harsh rhonchi and tachycardia 120/min. 1500 I contacted her primary care physician Dr. Ashley for admission. 1545 Dr. Ashley requested the blood gas and after discussion he agreed to admit her. Resp/SOB HPI - General Chief Complaint: Shortness of Breath/Dyspnea Stated Complaint: SOB Time Seen by Provider: 04/28/18 12:40 Mode of Arrival: EMS Limitations: No Limitations Description of Symptoms (Recalled from ER Triage Doc. by RN): SOB FOR PAST THREE DAYS. STATES COUGHING MAKES HER HURT. - History of Present Illness 63 years old white female active smoker with a history of COPD, pulmonary fibrosis and coronary artery disease status post stenting 5 years ago. She was admitted 2 weeks ago for pneumonia and discharged on nebulizer treatment antibiotics and home oxygen. Patient denies improvement since discharge she continues to smoke until yesterday when she started developing worsening of her breathing. She complained of chills productive sputum white yellow in color without hemoptysis, denies having chest pain but she admits for nausea and vomited twice yesterday. Today she increase her oxygen to 3 or 3 L give her some breathing treatment with no improvement contacted EMS where she received another breathing treatment was brought to the ED. her saturation was 95% but was notable she is tachycardic at 130/min. MD Complaint: shortness of breath, cough Onset (ago): day(s) (yesterday.) Context: smoke/fume exposure Severity: moderate Consistency/Duration: constant (worse for the past day ) Relieving factors: rest, bronchodilators Exacerbating factors: movement Known history of: COPD, diabetes, recurrent pneumonia, other (CAD.) - Related Data Home Medications Medication Instructions Recorded Confirmed furosemide 40 mg tablet 40 mg PO DAILY 08/26/17 03/30/18 insulin glargine (U-100) 100 40 unit SUB-Q DAILY ml 08/26/17 03/30/18 unit/mL (3 mL) subcutaneous pen nitroglycerin 0.4 mg sublingual 0.4 mg SUBLINGUAL Q5M PRN 08/26/17 03/30/18 tablet albuterol sulfate 2.5 mg/3 mL 3 mg INHALATION Q4-6H PRN 09/26/17 03/30/18 (0.083 %) solution for nebulization Budesonide/Formoterol Fumarate 2 puffs INHALATION BID 10/27/17 03/30/18 [Symbicort 160-4.5 Mcg Inhaler] Potassium Chloride [K-Tab ER 20 40 meq PO DAILY 10/27/17 03/30/18 mEq] Pioglitazone HCl/Metformin HCl 1 tab PO BID 03/12/18 03/30/18 [Pioglitazone-Metformin 15-850] Clopidogrel Bisulfate [Plavix 75mg 75 mg PO DAILY 03/16/18 03/30/18 Tab] Ipratropium/Albuterol Sulfate 1 puff IH QIDP PRN 03/17/18 03/30/18 [Combivent Respimat Inh] Pantoprazole Sodium [Protonix 40mg 40 mg PO DAILY 03/17/18 03/30/18 tablet] Sitagliptin Phosphate [Januvia 100 mg PO DAILY 03/17/18 03/30/18 100mg tablet] Metoprolol Succinate [Toprol XL 25 mg PO BID 03/30/18 03/30/18 25mg tablet] Previous Rx's Medication Instructions Recorded atorvastatin 20 mg tablet 20 mg PO DAILY #90 tab 03/18/18 lisinopril 10 mg tablet 10 mg PO DAILY #90 tab 03/18/18 albuterol sulfate HFA 90 2 puff INHALATION Q4-6H PRN 30 03/20/18 mcg/actuation aerosol inhaler Days #6.7 g Nicotine [Nicotine Patch 21 mg TD DAILY #30 patch 04/02/18 21mg/24hrs] conjugated estrogens 0.625 mg 0.625 mg PO DAILY #90 tab 04/08/18 tablet isosorbide mononitrate ER 30 mg 30 mg PO DAILY tab 04/08/18 tablet,extended release 24 hr montelukast 10 mg tablet 10 mg PO HS #90 tab 04/08/18 furosemide 20 mg tablet 20 mg PO DAILY #14 tab 04/10/18 benzonatate 100 mg capsule 100 mg PO TID PRN #30 cap 04/15/18 clonazepam 0.5 mg tablet 0.5 mg PO BID #60 tab 04/22/18 gabapentin 400 mg capsule 800 mg PO QID #120 cap 04/22/18 cyclobenzaprine 5 mg tablet 5 mg PO TID PRN #90 tab 04/23/18 Allergies Allergy/AdvReac Type Severity Reaction Status Date / Time No Known Allergies Allergy Verified 04/23/18 14:43 [facility] History I have reviewed the patient's past medical history: Yes Medical History: Reports:: Asthma, Chronic Obstructive Pulmonary Disease (COPD), Diabetes Mellitus Type 2, Gastroesophageal Reflux Disease(GERD), Heart Murmur, Home Oxygen, Hyperlipidemia, Hypertension, Kidney Stones, MRSA Denies:: Cancer, Diabetes Mellitus Type 1 Laterality Cases: Left: Arthroscopy Shoulder Other Surgeries: Yes: Coronary Stent, , Hysterectomy-Total Amputation: No Fractures: No Comment: KNEE REPLACEMENTS - Social History Smoking Status: Light tobacco smoker Tobacco Type: cigarettes # Packs/Day (cigarettes): 3 Alcohol Intake: never Substance Use Type: denies use Occupational Status: retired Housing: house Household Members: family Family Hx:: Diabetes Comment: PSOROSIS ROS Obtained: Yes All systems reviewed & no additional complaints Physical Exam - General General appearance: alert, in distress, other (Mild to moderate respiratory distress. ) - Head Head exam: atraumatic, normocephalic, normal inspection - Eye Eye exam: Present: normal appearance, PERRL, EOMI. Absent: scleral icterus, nystagmus - ENT ENT exam: Present: normal exam, normal oropharynx, mucous membranes moist, TM's normal bilaterally, normal external ear exam - Neck Neck exam: Present: normal inspection, full ROM, trachea midline. Absent: meningismus, lymphadenopathy - Chest Chest inspection: Present: normal inspection, symmetric chest wall rise. Absent: tenderness - Respiratory Respiratory exam: Present: normal lung sounds bilaterally, wheezes, prolonged expiratory phase, other (Moderate respiratory distress with prolonged expiratory phase and bilateral coarse rhonchi.) - Cardiovascular Cardiovascular exam: Present: regular rate, normal rhythm. Absent: JVD - Abdominal Exam Abdominal exam: Present: soft, normal bowel sounds. Absent: distention, tenderness, guarding, rebound, rigidity - External exam: Present: normal external exam - Extremities Exam Extremities exam: Present: normal inspection, full ROM, normal capillary refill. Absent: tenderness, calf tenderness - Back Exam Back exam: Present: normal inspection. Absent: full ROM, tenderness, CVA tenderness (R), CVA tenderness (L), paraspinal tenderness - Neurological Exam Neurological exam: Present: alert, oriented X3, CN II-XII intact, motor sensory deficit, reflexes normal - Psychiatric Psychiatric exam: Present: normal affect, normal mood - Skin Skin exam: Present: warm, dry, intact, normal color - Lymphatic Lymphatic Findings: no adenopathy
[2018-04-28 13:38] LABS: Basophils % 0.1 % (0.1-2.0); Eosinophils % 0.2 % (0.1-12.0); Hematocrit 37.6 % (37.0-47.0); Hemoglobin 11.4 g/dL (12.2-16.2); Lymphocytes # 0.5 K/mm3 (0.7-4.5); Mean Corpuscular HGB Conc 30.2 g/dL (31.8-35.4); Mean Corpuscular Hemoglobin 31.6 pg (27.0-31.2); Mean Corpuscular Volume 104.6 fl (81-99); Mean Platelet Volume 7.3 fl (7.4-10.4); Monocytes # 0.2 K/mm3 (0.1-1.0); Neutrophils # 10.8 K/mm3 (1.8-7.8); Neutrophils % 93.7 % (37.0-80.0); Platelet Count 661 K/mm3 (142-424); Red Blood Count 3.59 M/mm3 (4.20-5.40); White Blood Count 11.5 K/mm3 (4.8-10.8)
[2018-04-28 14:05] LABS: Lymphocytes % 5 % (10-50); Neutrophils % 95 % (42-76); Total Cells Counted 100
[2018-04-28 14:07] LABS: Macrocytosis 2+
[2018-04-28 14:08] LABS: Alanine Aminotransferase 13 U/L (12-78); Albumin Level 2.1 gm/dL (3.4-5.0); Albumin/Globulin Ratio 0.4 (1.1-1.8); Alkaline Phosphatase 186 U/L (46-116); Anion Gap 12.9 mEq/L (5-15); Aspartate Amino Transferase 14 U/L (15-37); Bilirubin,Total 0.2 mg/dL (0.2-1.0); Blood Urea Nitrogen 4 mg/dL (7-18); Calcium 8.6 mg/dL (8.5-10.1); Carbon Dioxide 25 mmol/L (21.0-32.0); Chloride 100 mmol/L (98-107); Creatine Kinase 41 U/L (26-192); Globulin 4.8 gm/dl (1.3-3.2); Glucose 159 mg/dL (74-106); Potassium 3.9 mmoL/L (3.5-5.1); Sodium 134 mmol/L (136-145); Total Protein,Serum 6.9 gm/dL (6.4-8.2)
[2018-04-28 15:26] LABS: ABG Base Excess -2.9 mmol/L (-2.4-2.3); ABG HCO3 21.8 mmhg (22.0-26.0); ABG Oxygen Saturation 96 % (90-100); ABG PCO2 35.2 mmhg (35.0-45.0); ABG PH 7.41 mmol/L (7.35-7.45); ABG PO2 80.9 mmhg (80-100); ABG TCO2 22.8 mmhg (23-27)
[2018-04-28 15:33] LABS: Oxygen 3LPM %
--- NOTE | 2018-04-28 21:51 | History & Physical Report ---
*Admission Date: 04/28/18 *Chief complaint: sob *History of present illness: this wf with progressive sob with prod cough with recent treatment with abx and steroids in march presents for eval - years old white female active smoker with a history of COPD, pulmonary fibrosis and coronary artery disease status post stenting 5 years ago. She was admitted 2 weeks ago for pneumonia and discharged on nebulizer treatment antibiotics and home oxygen. Patient denies improvement since discharge she continues to smoke until yesterday when she started developing worsening of her breathing. She complained of chills productive sputum white yellow in color without hemoptysis, denies having chest pain but she admits for nausea and vomited twice yesterday. Today she increase her oxygen to 3 or 3 L give her some breathing treatment with no improvement contacted EMS where she received another breathing treatment was brought to the ED. her saturation was 95% but was notable she is tachycardic at 130/min. pt was admitted for ivf and abx and pul treatments [facility] History I have reviewed the patient's past medical history: Yes Medical History: Reports:: Asthma, Chronic Obstructive Pulmonary Disease (COPD), Diabetes Mellitus Type 1, Diabetes Mellitus Type 2, Gastroesophageal Reflux Disease(GERD), Heart Murmur, Home Oxygen, Hyperlipidemia, Hypertension, Kidney Stones, Palpitations Denies:: Cancer, MRSA Laterality Cases: Left: Arthroscopy Shoulder, Other, Bilateral: Total Knee Replacement Other Surgeries: Yes: Coronary Stent, , Hysterectomy-Total Amputation: No Fractures: No - *Social History Educational Level: Attended High School Smoking Status: Current every day smoker Tobacco Type: cigarettes # Packs/Day (cigarettes): 1 #Yrs smoked (if former smoker): 32 Alcohol Intake: never Substance Use Type: denies use Occupational Status: retired Housing: house Household Members: family - Psychiatric History Expresses thoughts of harming self/others: None Suicide Plan Description: No Plan *Family Hx:: Diabetes Review of Systems - Review of Systems Review of systems:: pertinent systems reviewed and negative unless documented below - Constitutional Denies fever(s) - Eyes Denies change in vision - ENT Denies dizziness - *Cardiovascular Reports chest pain at rest, Reports shortness of breath - *Respiratory Reports cough, Reports excessive phlegm production, Denies coughing up blood - *Gastrointestinal Denies abdominal pain - *Genitourinary Denies blood in urine - *Musculoskeletal Denies joint pain - Integumentary/Breasts Denies rash - *Neurologic Denies seizure-like activity - Psychiatric Reports anxiety Meds Home Medications Medication Instructions Recorded Confirmed Type furosemide 40 mg tablet 40 mg PO DAILY 08/26/17 04/28/18 History insulin glargine (U-100) 100 40 unit SUB-Q DAILY ml 08/26/17 04/28/18 History unit/mL (3 mL) subcutaneous pen nitroglycerin 0.4 mg sublingual 0.4 mg SUBLINGUAL Q5M PRN 08/26/17 04/28/18 History tablet albuterol sulfate 2.5 mg/3 mL 3 mg INHALATION Q4-6H PRN 09/26/17 04/28/18 History (0.083 %) solution for nebulization Budesonide/Formoterol Fumarate 2 puffs INHALATION BID 10/27/17 04/28/18 History [Symbicort 160-4.5 Mcg Inhaler] Potassium Chloride [K-Tab ER 20 40 meq PO DAILY 10/27/17 04/28/18 History mEq] Pioglitazone HCl/Metformin HCl 1 tab PO BID 03/12/18 04/28/18 History [Pioglitazone-Metformin 15-850] Ipratropium/Albuterol Sulfate 1 puff IH QIDP PRN 03/17/18 04/28/18 History [Combivent Respimat Inh] Pantoprazole Sodium [Protonix 40mg 40 mg PO DAILY 03/17/18 04/28/18 History tablet] Sitagliptin Phosphate [Januvia 100 mg PO DAILY 03/17/18 04/28/18 History 100mg tablet] Metoprolol Succinate [Toprol XL 25 mg PO BID 03/30/18 04/28/18 History 25mg tablet] [Premarin] 0.625 mg PO DAILY 04/28/18 04/28/18 History Isosorbide Mononitrate [Imdur 30mg 30 mg PO DAILY 04/28/18 04/28/18 History ER tablet] Nicotine [Nicotine Patch 21 mg TD DAILY 04/28/18 04/28/18 History 21mg/24hrs] Allergies Allergy/AdvReac Type Severity Reaction Status Date / Time No Known Allergies Allergy Verified 04/23/18 14:43 Exam Vital signs and Labs for Last 24 Hours: Temp Pulse Resp BP Pulse Ox 98.2 F 114 H 14 133/67 96 04/28/18 20:00 04/28/18 20:00 04/28/18 20:00 04/28/18 20:00 04/28/18 20:00 Laboratory Results - last 24 hr 04/28/18 13:25: WBC 11.5 H, RBC 3.59 L, Hgb 11.4 L, Hct 37.6, MCV 104.6 H, MCH 31.6 H, MCHC 30.2 L, RDW 17.0, Plt Count 661 H, MPV 7.3 L, Neut % (Auto) 93.7 H, Lymph % (Auto) 4.0 L, [place] % (Auto) 2.0, Eos % (Auto) 0.2, Baso % (Auto) 0.1, Neut # (Auto) 10.8 H, Lymph # (Auto) 0.5 L, [place] # (Auto) 0.2, Eos # (Auto) 0.0, Baso # (Auto) 0.0, Total Counted 100, Neutrophils % (Manual) 95 H, Lymphocytes % (Manual) 5 L, Platelet Estimate Moderate increase, Macrocytosis 2+ 04/28/18 13:25: Sodium 134 L, Potassium 3.9, Chloride 100, Carbon Dioxide 25, Anion Gap 12.9, BUN 4 L, Creatinine 0.48 L, Estimated Creat Clear 63, Estimated GFR 131, Est GFR ( Amer) 159, Glucose 159 H, Calcium 8.6, Total Bilirubin 0.2, AST 14 L, ALT 13, Alkaline Phosphatase 186 H, Total Creatine Kinase 41, CK- MB (CK-2) 2.8 D, CK-MB (CK-2) Rel Index 6.8 H, Troponin I < 0.02, Total Protein 6.9, Albumin 2.1 L, Globulin 4.8 H, Albumin/Globulin Ratio 0.4 L 04/28/18 13:25: Lactate 1.1 04/28/18 13:25: B-Natriuretic Peptide 79 04/28/18 15:05: Specimen Source L brachial, O2 % 3lpm, ABG pH 7.41, ABG pCO2 35.2, ABG pO2 80.9, ABG HCO3 21.8 L, ABG Total CO2 22.8 L, ABG O2 Saturation 96, ABG Base Excess -2.9 L 04/28/18 19:13: Troponin I < 0.02 04/28/18 21:10: POC Glucose 190 H I & O for Last 24 hours: Intake & Output 04/26/18 04/27/18 04/28/18 04/29/18 11:59 11:59 11:59 11:59 Weight 155 lb 6 oz - Constitutional no acute distress - *Routine HEENT Exam Head: Present: normocephalic Eye: Present: EOMI, PERRL ENT: Present: mucous membranes dry - *Routine Neck Exam Absent: JVD - *Routine Respiratory Exam Present: decreased breath sounds, rhonchi, wheezes - *Routine Cardiovascular Exam Present: RRR, murmur, S4 - *Routine Abdominal Exam Present: soft - *Routine Extremities Exam Present: edema. Absent: calf tenderness - *Routine Skin Exam Present: intact - *Routine Neurological Exam Present: alert, oriented X3, CN II-XII intact - Routine Psychiatric Exam Present: normal affect Assessment and Plan (1) CAP (community acquired pneumonia) Current visit: No Status: Acute Qualifiers: Laterality: unspecified laterality Qualified Code(s): J18.9 - Pneumonia, unspecified organism Category: Medical Code(s): J18.9 - Pneumonia, unspecified organism (2) Pulmonary fibrosis Current visit: No Status: Chronic Category: Medical Code(s): J84.10 - Pulmonary fibrosis, unspecified (3) Diabetes mellitus Current visit: No Status: Acute Category: Medical Code(s): E11.9 - Type 2 diabetes mellitus without complications (4) Tobacco use Current visit: Yes Status: Acute Category: Social Hx Code(s): Z72.0 - Tobacco use
[2018-04-29 06:54] LABS: Anion Gap 17.9 mEq/L (5-15); Calcium 8.2 mg/dL (8.5-10.1); Potassium 4.9 mmoL/L (3.5-5.1)
[2018-04-29 07:10] LABS: Basophils % 0.3 % (0.1-2.0); Eosinophils # 0.1 K/mm3 (0.0-0.4); Eosinophils % 0.8 % (0.1-12.0); Hematocrit 33.4 % (37.0-47.0); Hemoglobin 10.4 g/dL (12.2-16.2); Lymphocytes # 0.6 K/mm3 (0.7-4.5); Lymphocytes % 8.5 K/mm3 (10-50); Mean Corpuscular HGB Conc 31.2 g/dL (31.8-35.4); Mean Corpuscular Hemoglobin 32.3 pg (27.0-31.2); Mean Corpuscular Volume 103.7 fl (81-99); Mean Platelet Volume 7.4 fl (7.4-10.4); Monocytes # 0.4 K/mm3 (0.1-1.0); Neutrophils # 5.5 K/mm3 (1.8-7.8); Neutrophils % 84.3 % (37.0-80.0); Platelet Count 579 K/mm3 (142-424); Red Blood Count 3.22 M/mm3 (4.20-5.40); White Blood Count 6.5 K/mm3 (4.8-10.8)
--- NOTE | 2018-04-29 07:39 | Pharmacy Consult Notes ---
[facility] Pharmacy VTE Monitoring - Patient Demographics Admission date: 04/28/18 Report Date: 04/29/18 Time: 07:39 Allergies/Adverse Reactions: Patient Allergies No Known Allergies Allergy (Verified 04/23/18 14:43) Height: 1.68 m Weight: 70.477 kg Patient Problems: Current Active Problems COPD exacerbation (Acute) Pulmonary fibrosis, unspecified (Acute) Tobacco use disorder (Acute) CAD (coronary artery disease) (Acute) Primary atypical pneumonia (Acute) Tobacco use (Acute) - VTE Risk Labs: VTE Related Lab Results Hgb 10.4 g/dL (12.2-16.2) L 04/29/18 06:10 Hct 33.4 % (37.0-47.0) L 04/29/18 06:10 Plt Count 579 K/mm3 (142-424) H 04/29/18 06:10 BUN 4 mg/dL (7-18) L 04/29/18 06:10 Creatinine 0.39 mg/dL (0.55-1.02) L 04/29/18 06:10 Estimated Creat Clear 65 mL/min (0-300) 04/29/18 06:10 Was VTE Risk Assessment Performed: Yes VTE Risk Level: Very Low Risk - Prophylaxis VTE Prophylaxis Ordered?: Yes Types of VTE Prophylaxis: TEDS Knee High Location of Applied Device: Bilateral Lower Extremeties - VTE Diagnosis Confirmed Treatment or plan recommended: Continue Current Treatment
--- NOTE | 2018-04-29 09:37 | Progress Note ---
Internal Medicine - PN: Subj *Date: 04/29/18 (n) *Time: 09:36 Exam Vital signs and Labs for Last 24 Hours: Temp Pulse Resp BP Pulse Ox 98.9 F 108 H 20 117/67 94 L 04/29/18 08:00 04/29/18 08:00 04/29/18 08:00 04/29/18 08:00 04/29/18 08:00 Laboratory Results - last 24 hr 04/28/18 13:25: WBC 11.5 H, RBC 3.59 L, Hgb 11.4 L, Hct 37.6, MCV 104.6 H, MCH 31.6 H, MCHC 30.2 L, RDW 17.0, Plt Count 661 H, MPV 7.3 L, Neut % (Auto) 93.7 H, Lymph % (Auto) 4.0 L, [place] % (Auto) 2.0, Eos % (Auto) 0.2, Baso % (Auto) 0.1, Neut # (Auto) 10.8 H, Lymph # (Auto) 0.5 L, Craig # (Auto) 0.2, Eos # (Auto) 0.0, Baso # (Auto) 0.0, Total Counted 100, Neutrophils % (Manual) 95 H, Lymphocytes % (Manual) 5 L, Platelet Estimate Moderate increase, Macrocytosis 2+ 04/28/18 13:25: Sodium 134 L, Potassium 3.9, Chloride 100, Carbon Dioxide 25, Anion Gap 12.9, BUN 4 L, Creatinine 0.48 L, Estimated Creat Clear 63, Estimated GFR 131, Est GFR ( Amer) 159, Glucose 159 H, Calcium 8.6, Total Bilirubin 0.2, AST 14 L, ALT 13, Alkaline Phosphatase 186 H, Total Creatine Kinase 41, CK- MB (CK-2) 2.8 D, CK-MB (CK-2) Rel Index 6.8 H, Troponin I < 0.02, Total Protein 6.9, Albumin 2.1 L, Globulin 4.8 H, Albumin/Globulin Ratio 0.4 L 04/28/18 13:25: Lactate 1.1 04/28/18 13:25: B-Natriuretic Peptide 79 04/28/18 15:05: Specimen Source L brachial, O2 % 3lpm, ABG pH 7.41, ABG pCO2 35.2, ABG pO2 80.9, ABG HCO3 21.8 L, ABG Total CO2 22.8 L, ABG O2 Saturation 96, ABG Base Excess -2.9 L 04/28/18 19:13: Troponin I < 0.02 04/28/18 21:10: POC Glucose 190 H 04/28/18 22:03: Troponin I < 0.02 04/29/18 06:10: WBC 6.5 D, RBC 3.22 L, Hgb 10.4 L, Hct 33.4 L, MCV 103.7 H, MCH 32.3 H, MCHC 31.2 L, RDW 17.0, Plt Count 579 H, MPV 7.4, Neut % (Auto) 84.3 H, Lymph % (Auto) 8.5 L, Craig % (Auto) 6.0, Eos % (Auto) 0.8, Baso % (Auto) 0.3, Neut # (Auto) 5.5, Lymph # (Auto) 0.6 L, Craig # (Auto) 0.4, Eos # (Auto) 0.1, Baso # (Auto) 0.0 04/29/18 06:10: Sodium 136, Potassium 4.9 D, Chloride 102, Carbon Dioxide 21, Anion Gap 17.9 H, BUN 4 L, Creatinine 0.39 L, Estimated Creat Clear 65, Estimated GFR 167, Est GFR ( Amer) 202 D, Glucose 149 H, Calcium 8.2 L, Magnesium 1.5 I & O for Last 24 hours: Intake & Output 04/26/18 04/27/18 04/28/18 04/29/18 11:59 11:59 11:59 11:59 Intake Total 1158 / 1158 Output Total 500 / 500 Balance 658 / 658 Weight 155 lb 6 oz Microbiology Reports for the Last 24 Hours: Microbiology 04/28/18 Unknown Sputum - Expectorated Sputum Gram Stain - Final 04/28/18 Unknown Sputum - Expectorated Sputum Sputum Culture - Preliminary - *Routine HEENT Exam Head: Present: normocephalic Eye: Present: EOMI, PERRL ENT: Present: mucous membranes moist - *Routine Neck Exam Present: supple. Absent: lymphadenopathy - *Routine Respiratory Exam Present: wheezes - *Routine Cardiovascular Exam Present: RRR, murmur - *Routine Abdominal Exam Present: soft, normoactive bowel sounds. Absent: tenderness - *Routine Extremities Exam Absent: cyanosis, clubbing, edema - *Routine Skin Exam Present: warm. Absent: rash - *Routine Neurological Exam Present: alert, oriented X3 Assessment and Plan (1) CAP (community acquired pneumonia) Current visit: No Status: Acute Qualifiers: Laterality: unspecified laterality Qualified Code(s): J18.9 - Pneumonia, unspecified organism Category: Medical Code(s): J18.9 - Pneumonia, unspecified organism (2) Pulmonary fibrosis Current visit: No Status: Chronic Category: Medical Code(s): J84.10 - Pulmonary fibrosis, unspecified (3) Diabetes mellitus Current visit: No Status: Acute Category: Medical Code(s): E11.9 - Type 2 diabetes mellitus without complications (4) Tobacco use Current visit: Yes Status: Acute Category: Social Hx Code(s): Z72.0 - Tobacco use - Assessment and plan all Dx Assessment and Plan for all problems:: Dr. Ashley rounded earlier, all orders per Gabi Possible discharge in the a.m.
[2018-04-30 07:40] LABS: Basophils % 0.2 % (0.1-2.0); Eosinophils % 0.4 % (0.1-12.0); Hematocrit 33.9 % (37.0-47.0); Hemoglobin 10.3 g/dL (12.2-16.2); Lymphocytes # 0.7 K/mm3 (0.7-4.5); Lymphocytes % 8.5 K/mm3 (10-50); Mean Corpuscular HGB Conc 30.5 g/dL (31.8-35.4); Mean Corpuscular Hemoglobin 32.2 pg (27.0-31.2); Mean Corpuscular Volume 105.7 fl (81-99); Mean Platelet Volume 7.2 fl (7.4-10.4); Monocytes # 0.4 K/mm3 (0.1-1.0); Monocytes % 4.6 % (1.7-9.3); Neutrophils # 6.6 K/mm3 (1.8-7.8); Neutrophils % 86.2 % (37.0-80.0); Platelet Count 523 K/mm3 (142-424); Red Blood Count 3.21 M/mm3 (4.20-5.40); Red Cell Distribution Width 17.3 % (11.5-17.5); White Blood Count 7.6 K/mm3 (4.8-10.8)
[2018-04-30 07:48] LABS: Albumin/Globulin Ratio 0.4 (1.1-1.8); Anion Gap 15.3 mEq/L (5-15); Bilirubin,Total 0.3 mg/dL (0.2-1.0); Globulin 4.8 gm/dl (1.3-3.2); Potassium 4.3 mmoL/L (3.5-5.1); Total Protein,Serum 6.8 gm/dL (6.4-8.2)
[2018-04-30 08:11] LABS: Lymphocytes % 13 % (10-50); Monocytes % 2 % (2-9); Neutrophils % 85 % (42-76); RBC Morphology 1; Total Cells Counted 100
--- NOTE | 2018-04-30 09:29 | Discharge Summary ---
General - General Admission date:: 04/28/18 Discharge date: 04/30/18 HPI HPI: this wf with progressive sob with prod cough with recent treatment with abx and steroids in march presents for eval - years old white female active smoker with a history of COPD, pulmonary fibrosis and coronary artery disease status post stenting 5 years ago. She was admitted 2 weeks ago for pneumonia and discharged on nebulizer treatment antibiotics and home oxygen. Patient denies improvement since discharge she continues to smoke until yesterday when she started developing worsening of her breathing. She complained of chills productive sputum white yellow in color without hemoptysis, denies having chest pain but she admits for nausea and vomited twice yesterday. Today she increase her oxygen to 3 or 3 L give her some breathing treatment with no improvement contacted EMS where she received another breathing treatment was brought to the ED. her saturation was 95% but was notable she is tachycardic at 130/min. pt was admitted for ivf and abx and pul treatments Hospital Course Hospital Course: chest x ray: IMPRESSION: Chronic pulmonary fibrosis with suspected superimposed pneumonia in the upper lobes slightly worse IV antibiotics steroids and monitoring of labs and vitals. We will discharge home today on Levaquin and steroids and follow-up in the office. Objective Vital signs: Temp Pulse Resp BP Pulse Ox 98.7 F 105 H 20 118/73 94 L 04/30/18 08:00 04/30/18 08:00 04/30/18 08:00 04/30/18 08:00 04/30/18 08:00 - *Routine HEENT Exam Head: Present: normocephalic Eye: Present: EOMI ENT: Present: mucous membranes moist - *Routine Neck Exam Present: full ROM - *Routine Respiratory Exam Present: wheezes - *Routine Cardiovascular Exam Present: murmur - *Routine Abdominal Exam Present: soft, normoactive bowel sounds - *Routine Skin Exam Present: intact - *Routine Neurological Exam Present: alert, oriented X3, CN II-XII intact - Routine Psychiatric Exam Present: normal affect Results Labs on day of discharge: Labs from last 24 hours 04/30/18 04/30/18 04/30/18 06:53 06:53 06:06 WBC 7.6 RBC 3.21 L Hgb 10.3 L Hct 33.9 L MCV 105.7 H MCH 32.2 H MCHC 30.5 L RDW 17.3 Plt Count 523 H MPV 7.2 L Neut % (Auto) 86.2 H Lymph % (Auto) 8.5 L [place] % (Auto) 4.6 Eos % (Auto) 0.4 Baso % (Auto) 0.2 Neut # (Auto) 6.6 Lymph # (Auto) 0.7 [place] # (Auto) 0.4 Eos # (Auto) 0.0 Baso # (Auto) 0.0 Total Counted 100 Neutrophils % (Manual) 85 H Lymphocytes % (Manual) 13 Monocytes % (Manual) 2 Platelet Estimate Slight increase RBC Morphology 1 Sodium 132 L Potassium 4.3 Chloride 97 L Carbon Dioxide 24 Anion Gap 15.3 H BUN 12 D Creatinine 0.72 D Estimated Creat Clear 65 Estimated GFR 82 Est GFR ( Amer) 99 D Glucose 178 H POC Glucose 209 H Calcium 8.0 L Total Bilirubin 0.3 AST 27 D ALT 14 Alkaline Phosphatase 157 H Total Protein 6.8 Albumin 2.0 L Globulin 4.8 H Albumin/Globulin Ratio 0.4 L 04/29/18 04/29/18 04/29/18 20:31 15:52 10:54 WBC RBC Hgb Hct MCV MCH MCHC RDW Plt Count MPV Neut % (Auto) Lymph % (Auto) [place] % (Auto) Eos % (Auto) Baso % (Auto) Neut # (Auto) Lymph # (Auto) [place] # (Auto) Eos # (Auto) Baso # (Auto) Total Counted Neutrophils % (Manual) Lymphocytes % (Manual) Monocytes % (Manual) Platelet Estimate RBC Morphology Sodium Potassium Chloride Carbon Dioxide Anion Gap BUN Creatinine Estimated Creat Clear Estimated GFR Est GFR ( Amer) Glucose POC Glucose 188 H 181 H 152 H Calcium Total Bilirubin AST ALT Alkaline Phosphatase Total Protein Albumin Globulin Albumin/Globulin Ratio Preliminary micro results at discharge 04/28/18 Unknown Sputum Culture - Preliminary Sputum - Expectorated Sputum Gram Positive Cocci - Additional Comments rounded with yvon all orders per yvon DS: Diagnosis - Discharge Diagnosis (1) CAP (community acquired pneumonia) Status: Acute (2) Pulmonary fibrosis Status: Chronic (3) Diabetes mellitus Status: Acute (4) Tobacco use Status: Acute Discharge Plan - Patient Discharge Instructions ACTIVITY: Continue current activity DIET: continue same diet - Follow up Plan Follow up with: Denver Ashley MD [Staff Physician] - 1 week Disposition: Home, Self-Skilled Nursing Medications: Home Medications Medication Instructions Recorded Confirmed Type insulin glargine (U-100) 100 40 unit SUB-Q DAILY ml 08/26/17 04/28/18 History unit/mL (3 mL) subcutaneous pen nitroglycerin 0.4 mg sublingual 0.4 mg SUBLINGUAL Q5M PRN 08/26/17 04/28/18 History tablet albuterol sulfate 2.5 mg/3 mL 3 mg INHALATION Q4-6H PRN 09/26/17 04/28/18 History (0.083 %) solution for nebulization Budesonide/Formoterol Fumarate 2 puffs INHALATION BID 10/27/17 04/28/18 History [Symbicort 160-4.5 Mcg Inhaler] Potassium Chloride [K-Tab ER 20 40 meq PO DAILY 10/27/17 04/28/18 History mEq] Ipratropium/Albuterol Sulfate 1 puff IH QIDP PRN 03/17/18 04/28/18 History [Combivent Respimat Inh] Pantoprazole Sodium [Protonix 40mg 40 mg PO DAILY 03/17/18 04/28/18 History tablet] Sitagliptin Phosphate [Januvia 100 mg PO DAILY 03/17/18 04/28/18 History 100mg tablet] Metoprolol Succinate [Toprol XL 25 mg PO BID 03/30/18 04/28/18 History 25mg tablet] Isosorbide Mononitrate [Imdur 30mg 30 mg PO DAILY 04/28/18 04/28/18 History ER tablet] Nicotine [Nicotine Patch 21 mg TD DAILY 04/28/18 04/28/18 History 21mg/24hrs] Clopidogrel Bisulfate [Plavix 75mg 75 mg PO DAILY 04/29/18 04/29/18 History Tab] Cyclobenzaprine HCl 5 mg PO TIDP PRN 04/29/18 04/29/18 History [Cyclobenzaprine 5mg Tab] Estrogens,Esterified [Menest] 0.625 mg PO DAILY 04/29/18 04/29/18 History Gabapentin [Gabapentin 800mg Tab] 800 mg PO QID 04/29/18 04/29/18 History Pioglitazone HCl/Metformin HCl 1 each PO BID 04/29/18 04/29/18 History [Pioglitazone-Metformin 15] Prescriptions/Medication Reconciliation: New levoFLOXacin [Levaquin 500mg tab] 500 mg PO DAILY 5 Days #5 tab predniSONE [Prednisone 20mg Tab] 20 mg PO BID 5 Days #10 tab Clopidogrel Bisulfate [Plavix 75mg Tab] 75 mg PO DAILY tablet Continue insulin glargine (U-100) 100 unit/mL (3 mL) subcutaneous pen 40 unit SUB-Q DAILY ml nitroglycerin 0.4 mg sublingual tablet 0.4 mg SUBLINGUAL Q5M PRN PRN Reason: Chest Pain albuterol sulfate 2.5 mg/3 mL (0.083 %) solution for nebulization 3 mg INHALATION Q4-6H PRN PRN Reason: breathing problems lisinopril 10 mg tablet 10 mg PO DAILY #90 tab atorvastatin 20 mg tablet 20 mg PO DAILY #90 tab montelukast 10 mg tablet 10 mg PO HS #90 tab albuterol sulfate HFA 90 mcg/actuation aerosol inhaler 2 puff INHALATION Q4- 6H PRN 30 Days #6.7 g PRN Reason: shortness of breath or wheezing clonazepam 0.5 mg tablet 0.5 mg PO BID #60 tab Potassium Chloride [K-Tab ER 20 mEq] 40 meq PO DAILY Budesonide/Formoterol Fumarate [Symbicort 160-4.5 Mcg Inhaler] 2 puffs INHALATION BID Sitagliptin Phosphate [Januvia 100mg tablet] 100 mg PO DAILY Pantoprazole Sodium [Protonix 40mg tablet] 40 mg PO DAILY Ipratropium/Albuterol Sulfate [Combivent Respimat Inh] 1 puff IH QIDP PRN PRN Reason: Shortness Of Breath Metoprolol Succinate [Toprol XL 25mg tablet] 25 mg PO BID Isosorbide Mononitrate [Imdur 30mg ER tablet] 30 mg PO DAILY Nicotine [Nicotine Patch 21mg/24hrs] 21 mg TD DAILY Pioglitazone HCl/Metformin HCl [Pioglitazone-Metformin 15-] 1 each PO BID Gabapentin [Gabapentin 800mg Tab] 800 mg PO QID Estrogens,Esterified [Menest] 0.625 mg PO DAILY Clopidogrel Bisulfate [Plavix 75mg Tab] 75 mg PO DAILY Cyclobenzaprine HCl [Cyclobenzaprine 5mg Tab] 5 mg PO TIDP PRN PRN Reason: MUSCLE SPASMS
== END 2018-04-30 10:32 | disposition home or self-care (01) ==
LOC: 2ND 12:32 → ER 12:32 → 2ND 17:28
PROVIDERS: ADMIT Emergency Medicine; ATTEND Emergency Medicine